=== PATIENT | female | born 1970 | race Caucasian/White ===

== ENCOUNTER 2022-05-18 11:05 | Outpatient (REF) | payer BC, SELFPAY | END 2022-05-18 11:06 | disposition home or self-care (01) | LOC: HO.MDS 11:05 | PROVIDERS: PCP Internal Medicine; Visit Provider Psychiatry & Neurology Neurology | DX: G35 Multiple sclerosis (principal) | CPT/HCPCS: 96365; J2930 ==

== ENCOUNTER 2022-05-19 10:57 | Outpatient (REF) | payer BC, SELFPAY | END 2022-05-19 10:58 | disposition home or self-care (01) | LOC: HO.MDS 10:57 | PROVIDERS: PCP Internal Medicine; Visit Provider Psychiatry & Neurology Neurology | DX: G35 Multiple sclerosis (principal) | CPT/HCPCS: 96365; J2930 ==

== ENCOUNTER 2022-05-20 11:07 | Outpatient (REF) | payer BC, SELFPAY | END 2022-05-20 11:08 | disposition home or self-care (01) | LOC: HO.MDS 11:07 | PROVIDERS: Visit Provider Psychiatry & Neurology Neurology | DX: G35 Multiple sclerosis (principal) | CPT/HCPCS: 96365; J2930 ==

== ENCOUNTER → 2022-12-01 14:59 | Outpatient (BNVA) | payer BC, SELFPAY | PROVIDERS: PCP Internal Medicine; Visit Provider Psychiatry & Neurology Psychiatry | DX: Z13.89 Encounter for screening for other disorder (principal) ==

== ENCOUNTER 2023-04-19 13:02 | Outpatient (REF) | payer BC, SELFPAY | END 2023-04-19 13:03 | disposition home or self-care (01) | LOC: HO.MDS 13:02 | PROVIDERS: Visit Provider Psychiatry & Neurology Neurology | DX: G35 Multiple sclerosis (principal) | CPT/HCPCS: 96365; J2930 ==

== ENCOUNTER 2023-04-20 12:50 | Outpatient (REF) | payer BC, SELFPAY | END 2023-04-20 12:51 | disposition home or self-care (01) | LOC: HO.MDS 12:50 | PROVIDERS: Visit Provider Psychiatry & Neurology Neurology | DX: G35 Multiple sclerosis (principal) | CPT/HCPCS: 96365; J2930 ==

== ENCOUNTER 2023-04-21 13:10 | Outpatient (REF) | payer BC, SELFPAY | END 2023-04-21 13:11 | disposition home or self-care (01) | LOC: HO.MDS 13:10 | PROVIDERS: Visit Provider Psychiatry & Neurology Neurology | DX: G35 Multiple sclerosis (principal) | CPT/HCPCS: 96365; J2930 ==

== ENCOUNTER 2023-08-11 12:11 | Outpatient (AMB) | payer BC, SELFPAY ==
--- NOTE | 2023-08-11 12:20 | MHC.OFFVISPS ---
Intake Intake Visit Reasons: depression HPI- Psychiatric Chief Complaint: depression HPI Narrative: Pt seen in f/u mood has been stable rare panic has not needed to take lorazepam going away with sophia grace uses florian when flying sober 4 yrs stable on low-dose sertraline multiple sclerosis has been stable no change on MRI scans or symptoms continue see Dr. 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 S HAS NOT TOLERATED MOOD STABILIZING AGENTS HAS BEEN STABLE ON SERTRALINE FOR YEARS Mental Status Exam Mental Status Exam Narrative: Mental Status Exam Narrative: Appearance: Casually dressed Behavior: Cooperative appropriate psychomotor: Within normal limits Speech: Normal volume and prosody Thought proccess logical and goal-directed Thought content: Future oriented no self-harming thoughts Mood: Euthymic Affect: Appropriate to mood full affect MILDLY EXPANSIVE SI:denies HI:denies VH/AH:none Delusions: None Insight/judgment: Good insight and judgment Memory/cog: Intact Assessment and Plan Assessment & Plan (1) Mood disorder: Status: Acute Code(s): F39 - Unspecified mood [affective] disorder (2) Panic disorder: Status: Acute Code(s): F41.0 - Panic disorder [episodic paroxysmal anxiety] Plan cont sertraline lorazepam prn Medications: Refilled lorazepam 0.5 mg PO BID PRN 30 tabs 1RF anxiety Counseling and coordination of Care Details: I spent [] minutes reviewing the record, seeing the patient and documenting in the medical record. Counseling provided to the patient/caregiver as outlined below. Addressed patient/caregiver concerns regarding current medication regime including effective adherence. Addressed patient/caregiver concerns regarding diagnosis and prognosis including accuracy of diagnosis, prognosis over time, impact of diagnosis. Addressed patient/caregiver concerns regarding impact of recent stressors. 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 PATIENT VERY ACTIVE IN RECOVERY. POSITIVE FAMILY HISTORY OF ANXIETY DISORDERS AND ADDICTION Substance History: PAST HISTORY OF ALCOHOL AND COCAINE USE GENERALLY CHARACTERIZED BY BINGEING Coding Level of Care Code Est Pt Level 4 (42685) Diagnoses Mood disorder F39 Panic disorder F41.0
== END 2023-08-11 12:44 | disposition home or self-care (01) ==
LOC: HO.HOP 12:11
PROVIDERS: PCP Internal Medicine; Visit Provider Psychiatry & Neurology Psychiatry
DX: F39 Unspecified mood [affective] disorder (principal); F41.0 Panic disorder [episodic paroxysmal anxiety]
CPT/HCPCS: 99214

== ENCOUNTER → 2023-08-11 12:11 | Outpatient (BNVA) | payer BC, SELFPAY | PROVIDERS: PCP Internal Medicine; Visit Provider Psychiatry & Neurology Psychiatry ==

== ENCOUNTER 2024-01-16 10:59 | Outpatient (AMB) | payer BC, SELFPAY ==
--- NOTE | 2024-01-16 11:25 | MHC.OFFVISPS ---
Intake Intake Visit Reasons: Depression HPI- Psychiatric Chief Complaint: Depression HPI Narrative: The pt reports no medical changes still sober has 16 yo at home he has anxiety problems has rare flares ms usually in may still takes protandem rare solumedrol sertraline generally takes 50 mg generally occ averages 75 occ pre panic attack feeling does do belly breathing can ride panic attack thru in traffic or plane Past Psychiatric History: HISTORY OF COCAINE AND ALCOHOL ABUSE SOBER TIMES YEARS. 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 S HAS NOT TOLERATED MOOD STABILIZING AGENTS HAS BEEN STABLE ON SERTRALINE FOR YEARS Mental Status Exam Mental Status Exam Narrative: Mental Status Exam Narrative: Appearance: Casually dressed Behavior: Cooperative appropriate psychomotor: Within normal limits Speech: Normal volume and prosody Thought proccess logical and goal-directed Thought content: Future oriented no self-harming thoughts Mood: Euthymic Affect: Appropriate to mood full affect SI:denies HI:denies VH/AH:none Delusions: None Insight/judgment: Good insight and judgment Memory/cog: Intact Assessment and Plan Assessment & Plan (1) Panic disorder: Status: Acute Code(s): F41.0 - Panic disorder [episodic paroxysmal anxiety] Assessment and Plan: generally stable no new med problrems sober x 5 yrs at this point active in AA does commitment to pre release Plan cont tx plan pt stable has varied her dose 50-75 which has worked x yrs Medications: Refilled sertraline 50 - 100 mg (0.5 - 1 x 100 mg) PO DAILY 90 tabs 1RF Counseling and coordination of Care Pt. Self Management counselin Step program Medication management counseling: Effectiveness Diagnosis and Prognosis Counseling: Adequacy of current interventions Details: I spent [30] minutes reviewing the record, seeing the patient and documenting in the medical record. Counseling provided to the patient/caregiver as outlined below. Addressed patient/caregiver concerns regarding current medication regime including effective adherence. Addressed patient/caregiver concerns regarding diagnosis and prognosis including accuracy of diagnosis, prognosis over time, impact of diagnosis. Addressed patient/caregiver concerns regarding impact of recent stressors. 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 PATIENT VERY ACTIVE IN RECOVERY. POSITIVE FAMILY HISTORY OF ANXIETY DISORDERS AND ADDICTION Substance History: PAST HISTORY OF ALCOHOL AND COCAINE USE GENERALLY CHARACTERIZED BY BINGEING Coding Level of Care Code Est Pt Level 4 (39051) Diagnoses Panic disorder F41.0
== END 2024-01-16 11:44 | disposition home or self-care (01) ==
LOC: HO.HOP 10:59
PROVIDERS: PCP Internal Medicine; Visit Provider Psychiatry & Neurology Psychiatry
DX: F41.0 Panic disorder [episodic paroxysmal anxiety] (principal)
CPT/HCPCS: 99214

== ENCOUNTER → 2024-01-16 10:59 | Outpatient (BNVA) | payer BC, SELFPAY | PROVIDERS: PCP Internal Medicine; Visit Provider Psychiatry & Neurology Psychiatry ==

== ENCOUNTER 2024-07-24 11:08 | Outpatient (AMB) | payer BC, SELFPAY ==
--- NOTE | 2024-07-24 11:51 | MHC.OFFVISPS ---
Intake Intake Visit Reasons: depression HPI- Psychiatric Chief Complaint: depression HPI Narrative: There is a ? 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 The pt has had inc anxiety panic and has had inc agoraphobia. History at times what appears to be a atypical cycling mood disorder but this has been complicated diagnostically in the past by MS treatment with steroids intermittently, past history of alcohol and cocaine use. Patient did recently other a relapsed with MS symptoms and was treated with intravenous steroids. Has not tolerated other treatments for MS. Past Psychiatric History: HISTORY OF COCAINE AND ALCOHOL ABUSE SOBER TIMES YEARS. 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 S HAS NOT TOLERATED MOOD STABILIZING AGENTS HAS BEEN STABLE ON SERTRALINE FOR YEARS T Mental Status Exam Mental Status Exam Narrative: Mental Status Exam Narrative: Appearance: Casually dressed Behavior: Cooperative appropriate mildly expansive? psychomotor: Within normal limits Speech: Normal volume and prosody Thought proccess logical and goal-directed Thought content: Future oriented no self-harming thoughts focused on recent inc in anxiety agoraphobic sx and panic Mood: ok with some anxiety Affect: Appropriate to mood full affect SI:denies HI:denies VH/AH:none Delusions: None Insight/judgment: Good insight and judgment Memory/cog: Intact Assessment and Plan Assessment & Plan (1) Panic disorder with agoraphobia: Status: Acute Code(s): F40.01 - Agoraphobia with panic disorder (2) Mood disorder: Status: Acute Code(s): F39 - Unspecified mood [affective] disorder (3) Multiple sclerosis: Status: Acute Code(s): G35 - Multiple sclerosis Plan cont 100 mg sertraline florian 0.5 prn panic attack had relapse panic agoraphobia december recent MS attck after viral syndrome was on steroids x 5 days recommends protandim for MS has worked for yrs. Patient has had periods of disinhibition unclear if related to MS ADD or cycling mood disorder but generally has done best on a combination of sertraline with rare use of lorazepam. Monitor patient for any increase anxiety agitation or mood instability on higher dose sertraline Medications: Changed From sertraline 75 mg (1.5 x 50 mg) PO DAILY 45 tabs 2RF To sertraline 100 mg PO DAILY 30 tabs 3RF Refilled lorazepam 0.5 mg PO BID PRN 30 tabs 1RF anxiety Counseling and coordination of Care Pt. Self Management counselin Step program and Breathing Medication management counseling: Effectiveness, Side effects and Dosing range Diagnosis and Prognosis Counseling: Accuracy of diagnosis, Impact of diagnosis on life functions and Adequacy of current interventions Details: I spent [25] minutes reviewing the record, seeing the patient and documenting in the medical record. Counseling provided to the patient/caregiver as outlined below. Addressed patient/caregiver concerns regarding current medication regime including effective adherence. Addressed patient/caregiver concerns regarding diagnosis and prognosis including accuracy of diagnosis, prognosis over time, impact of diagnosis. Addressed patient/caregiver concerns regarding impact of recent stressors. 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 PATIENT VERY ACTIVE IN RECOVERY. POSITIVE FAMILY HISTORY OF ANXIETY DISORDERS AND ADDICTION Substance History: PAST HISTORY OF ALCOHOL AND COCAINE USE GENERALLY CHARACTERIZED BY BINGEING Coding Level of Care Code Est Pt Level 4 (41076) Diagnoses Panic disorder with agoraphobia F40.01 Mood disorder F39 Multiple sclerosis G35
== END 2024-07-24 11:44 | disposition home or self-care (01) ==
LOC: HO.HOP 11:08
PROVIDERS: PCP Internal Medicine; Visit Provider Psychiatry & Neurology Psychiatry
DX: F40.01 Agoraphobia with panic disorder (principal); F39 Unspecified mood [affective] disorder; G35 Multiple sclerosis
CPT/HCPCS: 99214

== ENCOUNTER → 2024-07-24 11:08 | Outpatient (BNVA) | payer BC, SELFPAY | PROVIDERS: PCP Internal Medicine; Visit Provider Psychiatry & Neurology Psychiatry ==

== ENCOUNTER 2024-09-18 11:00 | Outpatient (AMB) | payer BC, SELFPAY ==
--- NOTE | 2024-09-18 11:38 | A.OFFPSYCH_ITS ---
Intake Intake Visit Reasons: depression HPI- Psychiatric Chief Complaint: depression HPI Narrative: Pt seen in f/u asking about add tx for concentration distractibility. Some inc anxiety distractibility ? related to ms attack few months ago. has been on sertraline 75 but has brakthru anxiety when driving and occ panic rare use of lorazepam Past Psychiatric History: HISTORY OF COCAINE AND ALCOHOL ABUSE SOBER TIMES YEARS. 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 S HAS NOT TOLERATED MOOD STABILIZING AGENTS HAS BEEN STABLE ON SERTRALINE FOR YE ARS T Mental Status Exam Mental Status Exam Narrative: Mental Status Exam Narrative: Appearance: Casually dressed Behavior: Cooperative appropriate mildly expansive? psychomotor: Within normal limits Speech: Normal volume and prosody Thought proccess logical and goal-directed Thought content: no self-harming thoughts focused on recent inc in anxiety agoraphobic sx and panic focused on dx and tx issues Mood: ok with some anxiety Affect: Appropriate to mood full affect SI:denies HI:denies VH/AH:none Delusions: None Insight/judgment: Good insight and judgment Memory/cog: Intact Assessment and Plan Assessment & Plan (1) Panic disorder with agoraphobia: Status: Acute Code(s): F40.01 - Agoraphobia with panic disorder (2) Multiple sclerosis: Status: Acute Code(s): G35 - Multiple sclerosis (3) Attention and concentration deficit: Status: Acute Code(s): R41.840 - Attention and concentration deficit Plan Pt has had inc anxiety phobic anxiety sx at times when driving ,discussed inc distactibility and hx of adhd sx. Compicated by recent ms attack with steroids Has been sober x yrs would avoid stimulants Medications: New guanfacine ER 1 at bedtime x 5 days then 2 bedtime 1 mg PO QPM 60 tabs 1RF Counseling and coordination of Care Pt. Self Management counseling: Breathing and Cognitive restructuring Medication management counseling: Effectiveness and Side effects Diagnosis and Prognosis Counseling: Impact of diagnosis on life functions and Adequacy of current interventions Details: I spent [30] minutes reviewing the record, seeing the patient and documenting in the medical record. Counseling provided to the patient/caregiver as outlined below. Addressed patient/caregiver concerns regarding current medication regime including effective adherence. Addressed patient/caregiver concerns regarding diagnosis and prognosis including accuracy of diagnosis, prognosis over time, impact of diagnosis. Addressed patient/caregiver concerns regarding impact of recent stressors. 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 PATIENT VERY ACTIVE IN RECOVERY. POSITIVE FAMILY HISTORY OF ANXIETY DISORDERS AND ADDICTION Substance History: PAST HISTORY OF ALCOHOL AND COCAINE USE GENERALLY CHARACTERIZED BY BINGEING Coding Level of Care Code Est Pt Level 4 (01783) Diagnoses Panic disorder with agoraphobia F40.01 Multiple sclerosis G35 Attention and concentration deficit R41.840
--- OUTSIDE RECORDS SUMMARY | 2024-09-19 01:21 | XMS_ITS ---
Author Name [facility] Organization Unknown History of Medication Use Medication Directions Dispensed Refills Start Date End Date [facility] orphenadrine (NORFLEX) injection 30 mg 30 mg, Intravenous, Once as needed, muscle spasms, for musculoskeletal pain, to achieve pain scale less than or equal to 4, Starting on Mon12/29/23 at 0946, For 1 dose, PACU/Phase 1 12/31/2023 complet ed dexamethasone (DECADRON) injection 4 mg 4 mg, Intravenous, Once as needed, other, nausea, vomiting, Starting on Mon12/29/23 at 0946, For 1 dose, PACU/Phase 1Administer 2nd unless given in the OR if zofran is ineffective and patient continues to be symptomatic. 12/31/2023 active sertraline (ZOLOFT) 50 MG tablet Take 1 tablet (50 mg total) by mouth every night at bedtime. 12/31/2023 active acetaminophen (TYLENOL) tablet 650 mg 650 mg, Oral, Every 6 hours PRN, mild pain (1-3), Starting on Mon12/29/23 at 0946, PACU/Phase 1 12/31/2023 active dimenhyDRINATE (DRAMAMINE) injection 25 mg 25 mg, Intravenous, Once as needed, nausea, Nausea, vomiting, Starting on Mon12/29/23 at 0946, For 1 dose, PACU/Phase 1Administer 3rd unless given in the OR if zofran and decadron are ineffective and patient continues to be symptomatic.??INTRAM USCULAR: No dilution required INTRAVENOUS: Must dilute 12/31/2023 completed HYDROmorphone (DILAUDID) injection 0.2 mg 0.2 mg, Intravenous, Every 15 min PRN, moderate pain (4-6), Starting on Mon12/29/23 at 0946, PACU/Phase 1FOR PACU USE ONLY.??If unable to take by mouth.??Do not exceed 2 mg.?? 12/31/2023 active oxyCODONE (ROXICODONE) 5 MG immediate release tablet 5 mg 5 mg, Oral, Every 4 hours PRN, moderate pain (4-6), achieve pain scale less than or equal to 4, Starting on Mon12/29/23 at 0946, For 2 doses, PACU/Phase 1Give when patient is able to take PO. 12/31/2023 active meperidine (DEMEROL) 25 MG/ML injection 12.5 mg 12.5 mg, Intravenous, Every 30 min PRN, shivering not due to postoperative hypothermia., Starting on Mon12/29/23 at 0946, For 2 doses, PACU/Phase 1May repeat x 1 in 30 minutes. 12/31/2023 active HYDROmorphone (DILAUDID) injection 0.5 mg 0.5 mg, Intravenous, Every 15 min PRN, severe pain (7-10), Starting on Mon12/29/23 at 0946, PACU/Phase 1FOR PACU USE ONLY.??If unable to take by mouth.??Do not exceed 2 mg.?Administer IV push over 2-3 minutes. 12/31/2023 active ondansetron (ZOFRAN) injection 4 mg 4 mg, Intravenous, Once as needed, nausea, vomiting, Starting on Mon12/29/23 at 0946, For 1 dose, PACU/Phase 1Administer 1st unless given in OR, then administer dexamethasone 12/31/2023 active lactated ringers infusion 50 mL/hr, Intravenous, Continuous, Starting on Mon12/29/23 at 0600, Pre-op 12/31/2023 active Problems Problem Status Onset Date Problem Type Date of Resoluti on Source Excess skin of upper extremity active EncounterDiagnosisAct CTT HSFRAN
== END 2024-09-18 12:06 | disposition home or self-care (01) ==
LOC: HO.HOP 11:00
PROVIDERS: PCP Internal Medicine; Visit Provider Psychiatry & Neurology Psychiatry
DX: F40.01 Agoraphobia with panic disorder (principal); G35 Multiple sclerosis; R41.840 Attention and concentration deficit
CPT/HCPCS: 99214

== ENCOUNTER 2024-10-01 16:05 | Outpatient (AMB) | payer BC, SELFPAY ==
--- NOTE | 2024-10-01 13:44 | MHC.OFFVISPS ---
Intake Intake Visit Reasons: depression HPI- Psychiatric Chief Complaint: depression HPI Narrative: Pt felt light headed on guanfacine did not tolerate. Patient has had an increase anxiety panic and and anticipatory anxiety particularly when driving. She has been stable on sertraline for many years this changed after MS attack a number of months ago. No relapse for number of years patient remained sober. Son has a history of ADHD and anxiety. Patient's temperament seems to be outgoing personality questions regarding cycling in the past Past Psychiatric History: HISTORY OF COCAINE AND ALCOHOL ABUSE SOBER TIMES YEARS. 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 S HAS NOT TOLERATED MOOD STABILIZING AGENTS HAS BEEN STABLE ON SERTRALINE FOR YEARS T Telehealth Telehealth Location of provider rendering services: practice address Location of patient: address on file Patient Identification confirmed using: Name, : Yes Telehealth method: video Patient verbally consented to treatment: Yes Patient verbally consented to billing insurance company: Yes Minutes spent on Phone/Video with Pt.: 17 Assessment and Plan Assessment & Plan (1) Panic disorder with agoraphobia: Status: Acute Code(s): F40.01 - Agoraphobia with panic disorder (2) Multiple sclerosis: Status: Acute Code(s): G35 - Multiple sclerosis Plan Patient did not tolerate guanfacine secondary to hypotension does not seem a good candidate for stimulants. Strattera could be an option targeting titration. Patient generally functions quite well at work has at more panic symptoms over the past number of months and we did discuss options regarding sertraline lorazepam 0.5 b.i.d. p.r.n.. Could consider a switch from sertraline consider low-dose doxepin or nortriptyline. Patient is dealing with fact that she had an MS attack for the 1st time an extended period time and was treated prednisone there had been some changes since Counseling and coordination of Care Pt. Self Management counseling: Cognitive restructuring and Exposure Medication management counseling: Effectiveness and Side effects Diagnosis and Prognosis Counseling: Impact of diagnosis on life functions and Adequacy of current interventions Details: I spent [17] minutes reviewing the record, seeing the patient and documenting in the medical record. Counseling provided to the patient/caregiver as outlined below. Addressed patient/caregiver concerns regarding current medication regime including effective adherence. Addressed patient/caregiver concerns regarding diagnosis and prognosis including accuracy of diagnosis, prognosis over time, impact of diagnosis. Addressed patient/caregiver concerns regarding impact of recent stressors. 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 PATIENT VERY ACTIVE IN RECOVERY. POSITIVE FAMILY HISTORY OF ANXIETY DISORDERS AND ADDICTION Substance History: PAST HISTORY OF ALCOHOL AND COCAINE USE GENERALLY CHARACTERIZED BY BINGEING Coding Level of Care Code Tele Est Pt Level 3 (14881) Diagnoses Panic disorder with agoraphobia F40.01 Multiple sclerosis G35
== END 2024-10-01 16:05 | disposition home or self-care (01) ==
LOC: HO.HOP 16:05
PROVIDERS: PCP Internal Medicine; Visit Provider Psychiatry & Neurology Psychiatry
DX: F40.01 Agoraphobia with panic disorder (principal); G35 Multiple sclerosis
CPT/HCPCS: 99213

== ENCOUNTER → 2024-10-01 16:05 | Outpatient (BNVA) | payer BC, SELFPAY | PROVIDERS: PCP Internal Medicine; Visit Provider Psychiatry & Neurology Psychiatry ==

== ENCOUNTER 2025-01-17 12:29 | Outpatient (AMB) | payer BC, SELFPAY ==
--- NOTE | 2025-01-17 12:42 | A.OFFPSYCH_ITS ---
Intake Intake Visit Reasons: depression Medication List - Last Reconciled 01/17/25 by Adalid Watts MD albuterol sulfate 90 mcg/actuation 2 puffs inhalation Q6H estradiol patches transdermal lorazepam 0.5 mg PO BID PRN progesterone micronized 100 mg PO DAILY sertraline 75 mg (1.5 x 50 mg) PO DAILY sertraline 100 mg PO DAILY HPI- Psychiatric Chief Complaint: depression HPI Narrative: Pt seen in f/u does still get panic attacks about 4 x week does have skills to try and block since perimenopause has been worse. No acute attcks MS since jun . Patient does not seem to be stabilizing on sertraline currently at 75 mg. Usually had only used minimal amounts of lorazepam \has generally been able to use coping skills breathing meditation. Denies any manic symptoms euphoria giddiness Past Psychiatric History: HISTORY OF COCAINE AND ALCOHOL ABUSE SOBER TIMES YEARS. 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 S HAS NOT TOLERATED MOOD STABILIZING AGENTS HAS BEEN STABLE ON SERTRALINE FOR YEARS T Mental Status Exam Mental Status Exam Narrative: Mental Status Exam Narrative: Appearance: Casually dressed Behavior: Cooperative appropriate mildly expansive psychomotor: Within normal limits Speech: Normal volume mildly pressured Thought proccess logical and goal-directed Thought content: focused on recent inc in anxiety agoraphobic sx and panic focused on dx and tx issues Mood: ok with some anxiety Affect: Appropriate to mood full affect SI:denies HI:denies VH/AH:none Delusions: None Insight/judgment: Good insight and judgment Memory/cog: Intact Assessment and Plan Assessment & Plan (1) Panic disorder: Status: Acute Code(s): F41.0 - Panic disorder [episodic paroxysmal anxiety] (2) Multiple sclerosis: Status: Acute Code(s): G35 - Multiple sclerosis (3) Attention and concentration deficit: Status: Acute Code(s): R41.840 - Attention and concentration deficit Plan Patient seen psychiatric follow-up. Patient has a history of MS and perimenopause has been started on low-dose estradiol patch with progesterone. Unfortunately the patient continues to have breakthrough panic attacks pr oximally for a week she does have strategies to cope with this but this is markedly increase from her prior history of panic disorder. We discussed the use of mirtazapine 7.5 mg at bedtime reviewed potential side effects including sedation and weight gain. Would start at a half tablet at bedtime increase as needed and tolerated. Patient does have a history of a mass she does have some degree of fatigue if mirtazapine contributes to daytime fatigue would discontinue Medications: New mirtazapine 7.5 mg PO BEDTIME 30 tabs 1RF Counseling and coordination of Care Details-Self Mgmt counseling: Discussed issues related to medication relationship to panic disorder ways to block panic attacks in the nature of panic attacks some of which can be condition and often coming out of no where Patient does have a history of MS Medication management counseling: Effectiveness and Side effects Diagnosis and Prognosis Counseling: Adequacy of current interventions Details: I spent [39] minutes reviewing the record, seeing the patient and documenting in the medical record. Counseling provided to the patient/caregiver as outlined below. Addressed patient/caregiver concerns regarding current medication regime including effective adherence. Addressed patient/caregiver concerns regarding diagnosis and prognosis including accuracy of diagnosis, prognosis over time, impact of diagnosis. Addressed patient/caregiver concerns regarding impact of recent stressors. 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 PATIENT VERY ACTIVE IN RECOVERY. POSITIVE FAMILY HISTORY OF ANXIETY DISORDERS AND ADDICTION Substance History: PAST HISTORY OF ALCOHOL AND COCAINE USE GENERALLY CHARACTERIZED BY BINGEING Coding Level of Care Code Est Pt Level 3 (89526) Therapy 30m w/E&M (42328) Diagnoses Panic disorder F41.0 Multiple sclerosis G35 Attention and concentration deficit R41.840
--- OUTSIDE RECORDS SUMMARY | 2025-01-17 13:09 | XMS_ITS | Encounter Summary ---
Author Organization [facility] Address [address] [place] [address] 12031 Care Team Providers Care Tele Rn Name Role Phone Unavailable Primary Care Provider Unavailabl e Encounter Details Date Type Department Care Team (Latest Contact Info) Description 10/21/2020 Lab Requisition [facility] COVID Drive Through [address] [place] [address] [address] [place] [address] Delmer May PA-C [address] [place] [address] [phone] Encounter for laboratory testing for COVID-19 virus Social History Tobacco Use Types Packs/Day Years Used Date Smoking Tobacco: Never Assessed Sex and Gender Information Value Date Recorded Sex Assigned at Not on file Gender Identity Not on file Sexual Orientation Not on file documented as of this encounter Plan of Treatment Not on file documented as of this encounter Visit Diagnoses Diagnosis Encounter for laboratory testing for COVID-19 virus documented in this encounter
--- OUTSIDE RECORDS SUMMARY | 2025-01-17 13:09 | XMS_ITS | Encounter Summary ---
Author Organization [facility] Address [address] [place] [address] Care Team Providers Care Professional Advisor Name Role Phone Unavailable Primary Care Provider Unavailabl e Encounter Details Date Type Department Care Team (Latest Contact Info) Description 10/21/2020 Lab Requisition [facility] COVID Drive Through [address] [place] [address] [address] [place] [address] Delmer May PA-C [address] [place] [address] [phone] Encounter for laboratory testing for COVID-19 virus Social History Tobacco Use Types Packs/Day Years Used Date Smoking Tobacco: Never Assessed Sex and Gender Information Value Date Recorded Sex Assigned at Not on file Gender Identity Not on file Sexual Orientation Not on file documented as of this encounter Plan of Treatment Not on file documented as of this encounter Procedures Procedure Name Priority Date/Time Associated Diagnosis Comments COVID-19 (SARS-COV-2) - [facility] LAB Routine 10/21/2020 12:43 PM EST Encounter for laboratory testing for COVID-19 virus [ICD-10-CM] documented in this encounter Results * COVID-19 (SARS-COV-2) ([facility]) (10/21/2020 12:43 PM EST) COVID-19 RT-PCR NOT-DETEC KATHI Not-Detec kathi 10/22/2020 6:10 PM EST [facility] LAB - [place] Comment:Interpretation: The viral RNA was not detected, making the COVID-19 diagnosis less likely. Clinical correlation is highly recommended.Final report signed by Bonny Pitts, Ph.D., Laboratory DirectorTests performed at [facility] Nasopharyngeal swab / Unknown 10/21/2020 12:43 PM EST 10/21/2020 12:44 PM EST Narrative CAITLYNKolton KARLY HERNANDEZJOSE R - 10/22/2020 6:10 PM EST Performed by [facility] [address] [place] [address], CLIA# [id number] and [place] License# [id number] Delmer May PA-C MICROBIOLOGY - NERAL ORDERABLES LEXIE HUGGINS documented in this encounter Visit Diagnoses Diagnosis Encounter for laboratory testing for COVID-19 virus documented in this encounter
--- OUTSIDE RECORDS SUMMARY | 2025-01-17 13:09 | XMS_ITS | Clinical Summary ---
Author Organization [facility] Address [address] [place] [address] Care Team Providers Care Caddymaster Name Role Phone Crystal Tavarez MD Primary Care Provide r Surgical History Surgery Date Site/Laterality Comments COLONOSCOPY PROCEDURE:COLONOSCOPY BACK SURGERY PROCEDURE:BACK SURGERY;COMMENT:cervial disc replacement DILATION AND CURETTAGE OF UTERUS PROCEDURE:DILATION AND CURETTAGE OF UTERUS TUBAL LIGATION PROCEDURE:TUBAL LIGATION OTHER SURGICAL HISTORY 12/29/2023 Bilateral PROCEDURE:BRACHIOPLASTY;COMME NT:Procedure: BILATERAL BRACHIOPLASTY; Surgeon: Christian Briscoe MD; Location: [facility] MAIN OPERATING ROOM; Service: Plastics; Laterality: Bilateral; LIPOSUCTION 12/29/2023 Bilateral PROCEDURE:LIPOSUCTION;COMMENT :Procedure: WITH PRE LIPOSUCTION ARMS; Surgeon: Christian Briscoe MD; Location: [facility] MAIN OPERATING ROOM; Service: Plastics; Laterality: Bilateral; Medical History Medical History Date Comments MS (multiple sclerosis) ([facility] /HCC V24, CMS/HCC V28) DX:MS (multiple sclerosis) ([facility]);COMMENT:Relapsing/ remitting per pt Visual impairment DX:Visual impa irment;COMMENT:Will wear glasses not contacts dos Social History Tobacco Use Types Packs/Day Years Used Date Smoking Tobacco: Never Smokeless Tobacco: Never Alcohol Use Standard Drinks/Week Comments Not Currently 0 (1 standard drink = 0.6 oz pur e alcohol) Comments Unknown Sex and Gender Information Value Date Recorded Sex Assigned at Not on file Legal Sex Female 2:05 PM EST Gender Identity Not on file Sexual Orientation Not on file Obstetrics History Plan of Treatment Health Maintenance Due Date Last Done Comments Breast Cancer Screening 1971 DTaP,Tdap,and Td Vaccines (1 - Tdap) 1990 Hepatitis B Vaccines (1 of 3 - 19+ 3-dose series) 1990 Cervical Cancer Screening: P ap Smear 1992 Pneumococcal Vaccine: 50+ Ye ars (1 of 1 - PCV) 2021 Zoster Vaccines (1 of 2) 2021 Colorectal Cancer Screening: Colonoscopy 06/03/2024 Depression Screening 06/03/2024 HIV Screening 06/03/2024 Hepatitis C Screening 06/03/2024 Social Influencers of Health Screening 06/03/2024 COVID-19 Vaccine (1 - 2023-2 5 season) 2024 Influenza Vaccine (Season Ended) 2025 HIB Vaccines Aged Out No longer eligi ble based on patient's age to complete this topic HPV Vaccines Aged Out No longer eligi ble based on patient's age to complete this topic Hepatitis A Vaccines Aged Out No long er eligible based on patient's age to complete this topic IPV Vaccines Aged Out No longer eligi ble based on patient's age to complete this topic MMR Vaccines Aged Out No longer eligi ble based on patient's age to complete this topic Meningococcal ACWY Vaccine Aged Out N o longer eligible based on patient's age to complete this topic Meningococcal B Vaccine Aged Out No l onger eligible based on patient's age to complete this topic Pneumococcal Vaccine: Pediat rics (0 to 5 Years) and At-Risk Patients (6 to 64 Years) Aged Out No longer eligible b ased on patient's age to complete this topic RSV Immunization Patients Un fallon 20 months Aged Out No longer eligible b ased on patient's age to complete this topic Varicella Vaccines Aged Out No longer eligible based on patient's age to complete this topic Care Teams Caddymaster Relationship Specialty Start Date End Date Crystal Tavarez MD [address] [place], [place] [address]les[place] PCP - General 12/29/23
--- OUTSIDE RECORDS SUMMARY | 2025-01-17 13:09 | XMS_ITS | Clinical Summary ---
Author Organization [facility] Address [address] [place] [address] Care Team Providers Care Rn Charge Name Role Phone Crystal Tavarez MD Primary Care Provide r Allergies Active Allergy Reactions Criticality Noted Date Comments Azithromycin Rash Low 12/25/2023 Other 12/25/2023 EKG gel/ has caused Burn like skin issues in past Penicillins Rash Low 12/25/2023 Sulfa Antibiotics Rash Low 12/25/2023 Medications Medication Sig Dispensed Refills Start Date End Date Status sertraline (ZOLOFT) 50 MG tablet Take 1 tablet (50 mg total) by mouth every night at bedtime. 0 Active Social History Tobacco Use Types Packs/Day Years Used Date Smoking Tobacco: Never Smokeless Tobacco: Never Alcohol Use Standard Drinks/Week Comments Not Currently 0 (1 standard drink = 0.6 oz pur e alcohol) Sex and Gender Information Value Date Recorded Sex Assigned at Female 12/01/2023 5:14 PM EST Gender Identity Not on file Sexual Orientation Not on file Job Start Date Occupation Industry Not on file Not on file Not on file Last Filed Vital Signs Vital Sign [place] Time Taken Comments Blood Pressure 126/62 12/29/2023 11:49 AM EDT Pulse 79 12/29/2023 11:49 AM EDT Temperature 36.8 ??C (98.3 ??F) 12/29/2023 11:39 AM E DT Respiratory Rate 16 12/29/2023 11:49 AM EDT Oxygen Saturation 96% 12/29/2023 11:49 AM EDT Inhaled Oxygen Concentration - - Weight 72.6 kg (160 lb) 12/25/2023 12:53 PM EDT Height 165.1 cm (5' 5 ) 12/25/2023 12:53 PM EDT Body Mass Index 26.63 12/25/2023 12:53 PM EDT Plan of Treatment Health Maintenance Due Date Last Done Comments Hepatitis B Vaccines (1 of 3 - 3-dose series) 1971 Hepatitis C Screening 1971 COVID-19 Vaccine (#1) 1971 Depression Screening 1983 BMI Counseling 1989 Preventative Health Evaluation 1989 DTap / Tdap / Td (1 - Tdap) 1990 Cervical Cancer Screening (P ap Smear) 1992 Colon Cancer Screening (Colonoscopy) 2016 Breast Cancer Screening (Mammogram) 2021 Shingrix-Zoster Vaccine (1 of 2) 2021 Influenza Vaccine (#1) 2024 Pneumococcal Vaccine Aged Out No long er eligible based on patient's age to complete this topic RSV Ped < 20 months Aged Out No longe r eligible based on patient's age to complete this topic Care Teams Rn Charge Relationship Specialty Start Date End Date Crystal Tavarez MD [address] [facility] [place] [address] PCP - General Internal Medicine 12/29/23
--- OUTSIDE RECORDS SUMMARY | 2025-01-17 13:09 | XMS_ITS | Clinical Summary ---
Author Organization [facility] Address [address] [place] [address] Care Team Providers Care Mail Courier Name Role Phone Unavailable Primary Care Provider Unavailabl e Social History Tobacco Use Types Packs/Day Years Used Date Smoking Tobacco: Never Assessed Sex and Gender Information Value Date Recorded Sex Assigned at Not on file Gender Identity Not on file Sexual Orientation Not on file Plan of Treatment Health Maintenance Due Date Last Done Comments Hepatitis C Virus Screening 1971 HIV Screening 1984 DTaP/Tdap/Td Vaccines (1 - Tdap) 1990 Hepatitis B Vaccines (1 of 3 - 19+ 3-dose series) 1990 Pneumococcal Vaccines 50+ (1 of 1 - PCV) 2021 Zoster (Shingles) Vaccine (1 of 2) 2021 COVID-19 Vaccine ( - 2023-2 5 season) 2024 Pneumococcal Vaccine: Pediat sulaiman (0-5 Years) and At-Risk Patients (6 to 49 Years) Aged Out No longer eligible b ased on patient's age to complete this topic
== END 2025-01-17 13:01 | disposition home or self-care (01) ==
LOC: HO.HOP 12:29
PROVIDERS: PCP Internal Medicine; Visit Provider Psychiatry & Neurology Psychiatry
DX: F41.0 Panic disorder [episodic paroxysmal anxiety] (principal); G35 Multiple sclerosis; R41.840 Attention and concentration deficit
CPT/HCPCS: 90833; 99213

== ENCOUNTER → 2025-01-17 12:29 | Outpatient (BNVA) | payer BC, SELFPAY | PROVIDERS: PCP Internal Medicine; Visit Provider Psychiatry & Neurology Psychiatry ==

== ENCOUNTER 2025-02-06 12:33 | Outpatient (AMB) | payer BC, SELFPAY ==
--- NOTE | 2025-02-06 12:50 | A.OFFPSYCH_ITS ---
Intake Intake Visit Reasons: depression Allergies Unable to Assess Allergy (Verified 01/19/25 00:45) Medication List - Last Reconciled 02/06/25 by Adalid Watts MD albuterol sulfate 90 mcg/actuation 2 puffs inhalation Q6H escitalopram oxalate 5 - 10 mg (0.5 - 1 x 10 mg) PO DAILY 30 days estradiol patches transdermal lorazepam 0.5 mg PO BID PRN lorazepam 0.5 mg PO BID PRN progesterone micronized 100 mg PO DAILY sertraline 75 mg (1.5 x 50 mg) PO DAILY sertraline 50 mg (1/2 x 100 mg) PO DAILY HPI- Psychiatric Chief Complaint: depression HPI Narrative: The pt cont to have significant chamge in anxiety ,battling driving fears and some in use of lorazepam over time but unusual. Sertraline 50-75 not effective. Past Psychiatric History: HISTORY OF COCAINE AND ALCOHOL ABUSE SOBER TIMES YEARS. 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 S HAS NOT TOLERATED MOOD STABILIZING AGENTS HAS BEEN STABLE ON SERTRALINE FOR YEARS T Mental Status Exam Mental Status Exam Narrative: Mental Status Exam Narrative: Appearance: Casually dressed Behavior: Cooperative appropriate psychomotor: Within normal limits Speech: Normal volume mildly pressured Thought proccess logical and goal-directed Thought content: focused on treatment coping strategies and improvement in symptoms Mood: ok with some anxiety Affect: Appropriate to mood full affect SI:denies HI:denies VH/AH:none Delusions: None Insight/judgment: Good insight and judgment Memory/cog: Intact Assessment and Plan Assessment & Plan (1) Panic disorder: Status: Acute Code(s): F41.0 - Panic disorder [episodic paroxysmal anxiety] Plan Risks benefits and alternatives reviewed discussed changing from sertraline gradually tapering down and starting escitalopram 5 mg. Patient at this point appears general resistant to sertraline. Not overly depressed still functioning generally well at work and home. Patient to cross taper to call if significant side effects during taper Medications: New escitalopram oxalate 5 - 10 mg (0.5 - 1 x 10 mg) PO DAILY 30 tabs 2RF 30 days Changed From sertraline 100 mg PO DAILY 30 tabs 1RF To sertraline 50 mg (1/2 x 100 mg) PO DAILY 30 tabs 1RF Discontinued mirtazapine Discontinued Reason: Patient no longer taking 7.5 mg PO BEDTIME 30 tabs 1RF Counseling and coordination of Care Details: I spent [] minutes reviewing the record, seeing the patient and documenting in the medical record. Counseling provided to the patient/caregiver as outlined below. Addressed patient/caregiver concerns regarding current medication regime including effective adherence. Addressed patient/caregiver concerns regarding diagnosis and prognosis including accuracy of diagnosis, prognosis over time, impact of diagnosis. Addressed patient/caregiver concerns regarding impact of recent stressors. 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 PATIENT VERY ACTIVE IN RECOVERY. POSITIVE FAMILY HISTORY OF ANXIETY DISORDERS AND ADDICTION Substance History: PAST HISTORY OF ALCOHOL AND COCAINE USE GENERALLY CHARACTERIZED BY BINGEING Coding Level of Care Code Est Pt Level 4 (58149) Diagnoses Panic disorder F41.0
--- OUTSIDE RECORDS SUMMARY | 2025-02-06 14:49 | XMS_ITS | Encounter Summary ---
Author Organization [facility] Address [address] [place] [address] Care Team Providers Care Watch Dial Printer Name Role Phone Unavailable Primary Care Provider Unavailabl e Encounter Details Date Type Department Care Team (Latest Contact Info) Description 10/21/2020 Lab Requisition [facility] COVID Drive Through [address] [place] [address] [address] [place] [address] Delmer May PA-C [address] [place] [address] [phone] Encounter for laboratory testing for COVID-19 virus Social History Tobacco Use Types Packs/Day Years Used Date Smoking Tobacco: Never Assessed Comments Unknown Sex and Gender Information Value Date Recorded Sex Assigned at Not on file Legal Sex Female 3:26 PM EDT Gender Identity Not on file Sexual Orientation Not on file documented as of this encounter Plan of Treatment Not on file documented as of this encounter Procedures Procedure Name Priority Date/Time Associated Diagnosis Comments COVID-19 (SARS-COV-2) - [facility] LAB Routine 10/21/2020 12:43 PM EST Encounter for laboratory testing for COVID-19 virus [ICD-10-CM] documented in this encounter Results * COVID-19 (SARS-COV-2) ([facility]4) (10/21/2020 12:43 PM EST) COVID-19 RT-PCR NOT-DETEC KATHI Not-Detec kathi 10/22/2020 6:10 PM EST [facility] LAB - [place] Comment:Interpretation: The viral RNA was not detected, making the COVID-19 diagnosis less likely. Clinical correlation is highly recommended.Final report signed by Bonny Pitts, Ph.D., Laboratory DirectorTests performed at [facility] Nasopharyngeal swab / Unknown 10/21/2020 12:43 PM EST 10/21/2020 12:44 PM EST Narrative LEXIE HUGGINS - 10/22/2020 6:10 PM EST Performed by [facility] [address] [place] [address], CLIA# [id number] and [place] License# [id number] us Delmer May PA-C MICROBIOLOGY - GENERAL OR DERABLES Final Result LEXIE HUGGINS documented in this encounter Visit Diagnoses Diagnosis Encounter for laboratory testing for COVID-19 virus documented in this encounter
--- OUTSIDE RECORDS SUMMARY | 2025-02-06 14:50 | XMS_ITS | Clinical Summary ---
Author Organization [facility] Address [address] [place] [address] Care Team Providers Care Redipper Name Role Phone Unavailable Primary Care Provider [...] (1 of 3 - 19+ 3-dose series) 03/10 Pneumococcal Vaccines 50+ (1 of 1 - PCV) 2021 Zoster (Shingles) Vaccine (1 of 2) 2021 COVID-19 Vaccine (1 - 2023- season) 2024
--- OUTSIDE RECORDS SUMMARY | 2025-02-06 14:51 | XMS_ITS | Encounter Summary ---
Author Organization [facility] Address [address] [place] [address] Care Team Providers Care Credit Collection Associate Name Role Phone Unavailable Primary Care Provider Unavailabl e Encounter Details Date Type Department Care Team (Latest Contact Info) Description 10/21/2020 Lab Requisition [facility] COVID Drive Through [address] [place] [address] [address] [place] [address] Delmer May PA-C [address] [place] [address] [phone] Encounter for laboratory testing for COVID-19 virus [...]
--- OUTSIDE RECORDS SUMMARY | 2025-02-06 14:52 | XMS_ITS | Clinical Summary ---
Author Organization [facility] Address [address] [place] [address] Care Team Providers Care Conservation Of Resources Commissioner Name Role Phone Crystal Tavarez MD Primary [...] age to complete this topic Care Teams Conservation Of Resources Commissioner Relationship Specialty Start Date End Date Crystal Tavarez MD [address] [facility] [place] [address] PCP - General Internal Medicine 12/29/23
== END 2025-02-06 12:36 | disposition home or self-care (01) ==
LOC: HO.HOP 12:33
PROVIDERS: PCP Internal Medicine; Visit Provider Psychiatry & Neurology Psychiatry
DX: F41.0 Panic disorder [episodic paroxysmal anxiety] (principal)
CPT/HCPCS: 99214

== ENCOUNTER → 2025-02-06 12:33 | Outpatient (BNVA) | payer BC, SELFPAY | PROVIDERS: PCP Internal Medicine; Visit Provider Psychiatry & Neurology Psychiatry ==

== ENCOUNTER 2025-02-14 12:30 | Outpatient (AMB) | payer BC, SELFPAY ==
--- OUTSIDE RECORDS SUMMARY | 2025-02-14 12:35 | XMS_ITS | Encounter Summary ---
Author Organization [facility] Address [address] [place] [address] Care Team Providers Care Office System Analyst Name Role Phone Unavailable Primary Care Provider Unavailabl e Encounter Details Date Type Department Care Team (Latest Contact Info) Description 10/21/2020 Lab Requisition [facility] COVID Drive Through [address] [place] [address] [address] [place] [address] Delmer May PA-C [address] [place] [address] [phone] Encounter for laboratory testing for COVID-19 virus [...] Bonny Pitts, Ph.D., Laboratory DirectorTests performed at [facility] Nasopharyngeal swab / Unknown 10/21/2020 12:43 PM EST 10/21/2020 12:44 PM EST Narrative LEXIE HUGGINS - 10/22/2020 6:10 PM EST Performed by [facility] [address] [place] [address], CLIA# [id number] and [place] License# [id number] us Delmer May PA-C MICROBIOLOGY - GENERAL OR DERABLES Final Result LEXIE HUGGINS documented in this encounter Visit Diagnoses Diagnosis Encounter for laboratory testing for COVID-19 virus documented in this encounter
--- OUTSIDE RECORDS SUMMARY | 2025-02-14 12:35 | XMS_ITS | Clinical Summary ---
Author Organization [facility] Address [address] [place] [address] Care Team Providers Care Facilities Operator Name Role Phone Crystal Tavarez MD Primary Care Provide r Surgical History Surgery Date Site/Laterality Comments COLONOSCOPY PROCEDURE:COLONOSCOPY BACK SURGERY PROCEDURE:BACK SURGERY;COMMENT:cervial disc replacement DILATION AND CURETTAGE OF UTERUS PROCEDURE:DILATION AND CURETTAGE OF UTERUS TUBAL LIGATION PROCEDURE:TUBAL LIGATION OTHER SURGICAL HISTORY 12/29/2023 Bilateral PROCEDURE:BRACHIOPLASTY;COMME NT:Procedure: BILATERAL BRACHIOPLASTY; Surgeon: Christian Briscoe MD; Location: [facility] MAIN OPERATING ROOM; Service: Plastics; Laterality: Bilateral; LIPOSUCTION 12/29/2023 Bilateral PROCEDURE:LIPOSUCTION;COMMENT :Procedure: WITH PRE LIPOSUCTION ARMS; Surgeon: Christian Briscoe MD; Location: [facility] MAIN OPERATING ROOM; Service: Plastics; Laterality: Bilateral; Medical History Medical History Date Comments MS (multiple sclerosis) ([facility] /HCC V24, CMS/HCC V28) DX:MS (multiple sclerosis) ([facility]);COMMENT:Relapsing/ remitting per pt Visual impairment DX:Visual impa [...] age to complete this topic Care Teams Facilities Operator Relationship Specialty Start Date End Date Crystal Tavarez MD [address] [place], [place] [address]lesa [place] PCP - General 12/29/23
--- OUTSIDE RECORDS SUMMARY | 2025-02-14 12:35 | XMS_ITS | Encounter Summary ---
Author Organization [facility] Address [address] [place] [address] Care Team Providers Care Spooling Supervisor Name Role Phone Unavailable Primary Care Provider Unavailabl e Encounter Details Date Type Department Care Team (Latest Contact Info) Description 10/21/2020 Lab Requisition [facility] COVID Drive Through [address] [place] [address] [address] [place] [address] Delmer May PA-C [address] [place] [address] [phone] Encounter for laboratory testing for COVID-19 virus [...]
--- OUTSIDE RECORDS SUMMARY | 2025-02-14 12:35 | XMS_ITS | Clinical Summary ---
Author Organization [facility] Address [address] [place] [address] Care Team Providers Care Air Shovel Operator Name Role Phone Unavailable Primary Care Provider [...]
--- OUTSIDE RECORDS SUMMARY | 2025-02-14 12:35 | XMS_ITS | Continuity of Care Document ---
Author Organization [facility] BEHAVIORAL HEALTH TECHNICIAN Oncolog y Address [address] [place] [phone]- Support Name Relationship Address Phone GLOBAL, IVF Personal Relationship Unknown Unavai lable COOK, ARIANNA Personal Relationship Unknown Unavai lable COOK, ARIANNA T Personal Relationship Unknown Unava ilable JÚNIOR, ARIANNA Personal Relationship Unknown Unavai lable COOK, ARIANNA Personal Relationship Unknown Unavai lable COOK, ARIANNA Personal Relationship Unknown Unavai lable COOK, ARIANNA Personal Relationship Unknown Unavai lable BLASCHECK, DEEPTI sibling Unknown Unavailable KG PIPPA unrelated friend Unknown Unavailabl e JÚNIOR, ARIANNA Personal Relationship Unknown Unavai lable COOK, ARIANNA Personal Relationship Unknown Unavai lable JÚNIOR, ARIANNA Personal Relationship Unknown Unavai lable COOK, ARIANNA spouse Unknown Unavailable JÚNIOR, SUMAYA Personal Relationship Unknown Unav ailable JÚNIOR, ARIANNA Personal Relationship Unknown Unavai lable COOK, ARIANNA Personal Relationship Unknown Unavai lable COOK, ARIANNA Personal Relationship Unknown Unavai lable COOK, ARIANNA Personal Relationship Unknown Unavai lable BLASCAK, DEEPTI sibling Unknown Unavailable JÚNIOR, ARIANNA Personal Relationship Unknown Unavai lable JÚNIOR, ARIANNA Personal Relationship Unknown Unavai lable COOK, ARIANNA Personal Relationship Unknown Unavai lable COOK, ARIANNA Personal Relationship Unknown Unavai lable COOK, ARIANNA Personal Relationship Unknown Unavai lable GLOBAL, IVF Personal Relationship Unknown Unavai lable RAKANUNEJAYEE, ARIANNA Personal Relationship Unknown U navailable BROWN, BRIAN mother Unknown Unavailable ARIANNA CALLEJAS Personal Relationship Unknown Unavai lable GLOBAL, IVF Personal Relationship Unknown Unavai lable Care Team Providers Care Timber Hewer Name Role Phone Corby RAMIREZ, Crystal Primary Care Physici an Encounter [facility] Date(s): 01/13/25 - 02/12/[address] [facility] BEHAVIORAL HEALTH TECHNICIAN Oncology [address] [place] [phone]- Encounter Type: Triage Allergies, Adverse Reactions, Alerts Substance Criticality Severity Reaction Reaction Severity Status penicillin Unable to assess criticality Unknown rash Active Zithromax Unable to assess criticality Unknown unknown Active Bee Stings anaphalaxis Active sulfa drugs hives Active Adhesive Bandage Act daniel Immunizations Given and Recorded Vaccine Date Status Refusal Reason SARS-CoV-2 (COVID-19) mRNA BNT-162b2 vac 02/02/21 Recorded SARS-CoV-2 (COVID-19) mRNA BNT-162b2 vac 01/11/21 Recorded tetanus/diphtheria/pertussis, acel(Tdap) 06/25/19 Given Influenza Virus Vaccine (oldterm) 08/23/18 Recorde d Influenza Virus Vaccine (oldterm) 08/21/17 Recorde d Influenza Virus Vaccine (oldterm) 1 08/21/08 Given diphtheria/tetanus/pertussis, acel(DTaP) 06/12/09 Recorded tetanus-diphtheria toxoids (Td) 01/28/05 Given Pneumococcal Vaccine (oldterm) 12/19/03 Given 1Admin Note: SONOFI PASTEUR given without incident denies col symptoms, denies egg allergy Medications Estradiol Patch 0.05 mg/24 hours twice weekly transdermal film, extended release 1 patch, Topically, Every Monday and , for 30 days, # 9 patch, 3 Refills, Hard Stop 05/24/2511:25:00 AM EDT, 01/24/25 11:25:00 AM EDT, [id number], Partial fill upon patient request if the prescription is for a schedule II opioid drug., 165, cm, 07/08/24 10:34:00 EDT, Height, 73, kg, 07/05/24 8:52:00 EDT, Dry Weight Start Date: 01/24/25 Stop Date: 05/24/25 Status: Ordered Quantity: 9.0 Unit: patch Repeat number: 4 Estradiol Patch 0.05 mg/24 hours twice weekly transdermal film, extended release 1 patch, Topically, Every Monday and , # 24 patch, 0 Refills, Maintenance, 05/24/25 11:25:00AM EDT, [id number], Partial fill upon patient request if the prescription is for a scheduleII opioid drug., 1 patch Topically Every Monday and ,x90 days, 165, cm, 07/08/24 10:34:00 EDT, Height, 73, kg, 07/05/24 8:52:00 EDT, Dry Weight Start Date: 05/24/25 Stop Date: 08/22/25 Status: Ordered Quantity: 24.0 Unit: patch Repeat number: 1 LORazepam 0.5 mg oral tablet TAKE 1 TABLET BY MOUTH TWICE A DAY NEEDED FOR ANXIETY Start Date: 12/05/23 Status: Ordered Repeat number: 1 Macrobid macrocrystals-monohydrate 100 mg oral capsule See Instructions, 1 capsule By Mouth Once prior to and after intercourse, # 12 capsule, 1 Refills, Soft Stop, 07/26/24 2:40:00 PM EDT, Capsule, [id number], Partial fill upon patient request if the prescription is for a schedule II opioid drug., 165, cm, 07/08/24 10:34:00 EDT, Height, 73, kg, 07/05/24 8:52:00 EDT, Dry Weight Start Date: 07/26/24 Status: Ordered Quantity: 12.0 Unit: capsule Repeat number: 2 Misc Rx Refills 0, Maintenance, Protandum for MS 1 tablet daily, 05/24/23 3:32:00 PM EDT, Supply Start Date: 05/24/23 Status: Ordered Repeat number: 1 Prometrium 100 mg oral capsule 1 capsule = 100 mg, By Mouth, Daily at bedtime, for 30 days, # 30 capsule, 3 Refills, Acute 05/07/2510:29:00 AM EDT, 01/07/25 10:29:00 AM EDT, [id number], Partial fill upon patient request if the prescription is for a schedule II opioid drug., 165, cm, 07/08/24 10:34:00 EDT, Height, 73, kg, 07/05/24 8:52:00 EDT, Dry Weight Start Date: 01/07/25 Stop Date: 05/07/25 Status: Ordered Quantity: 30.0 Unit: capsule Repeat number: 4 sertraline 100 mg oral tablet 1 tablet = 100 mg, By Mouth, Daily at bedtime Start Date: 2/27/24 Status: Ordered Repeat number: 1 Problem List Condition Confirmation Course Effective Dates Status Health Status Informant Bee sting allergy Confirmed Active Anxiety Confirmed Active Vitamin B12 deficiency Confirmed Active Dizziness Confirmed Active Family history of ischemic heart disease Confirmed Active Hypercholesterolemia Confirmed Active Hypokalemia Confirmed Active Kidney stone on left side Confirmed Active Microscopic hematuria Confirmed Active Multiple sclerosis Confirmed Active Palpitations Confirmed Active Panic disorder without agoraphobia Confirmed Active Perimenopause Confirmed Active Unexplained infertility Confirmed Active Social History Social History Type Response Smoking Status Never (less than 100 in lifetime) entered on: 02/09/23 Sex Sex Representation Female (finding) Patient Care team information Care Team Personnel Name: Maximiliano Ramos MD Position: [facility] QUALITY ASSURANCE SUPERVISOR MD Member Role: Lifetime QUALITY ASSURANCE SUPERVISOR Physician Address: [address] [place] [address] [facility] [place] [address]- Telecom: Name: Oneyda Estrada RN Position: [facility] RN Member Role: Primary Care Nurse Name: Lyric Harper RN Position: [facility] RN Supv Member Role: Primary Care Nurse Name: Crystal Tavarez MD Position: [facility] Physician - Primary Care Member Role: PCP Address: [address] [place] [phone]- Telecom: Name: Mara Toscano Position: [facility] Outreach Member Role: Lifetime Consulting Physician Care Team Related Persons Name: DEEPTI CHACON Name: DEEPTI PAEZ Name: BRIAN PHIPPS Name: ARIANNA CALLEJAS Name: PIPPA SAUL Insurance Providers Guarantor name: SUMAYA CALLEJAS Health Plan Information #: 1 Payer: [employer] Member Number: NA Policy Number: NA Group Number: NA
--- OUTSIDE RECORDS SUMMARY | 2025-02-14 12:35 | XMS_ITS | Continuity of Care Document ---
Author Organization [facility] SHIP CAPTAIN Oncolog y Address [address] [place] [phone]- Support Name Relationship Address Phone GLOBAL, IVF [...] RAKANUNEJAYEE, ARIANNA Personal Relationship Unknown U navailable DESIRE, BRIAN mother Unknown Unavailable JÚNIOR, ARIANNA Personal Relationship Unknown Unavai lable GLOBAL, IVF Personal Relationship Unknown Unavai lable Care Team Providers Care Gusset Ripper Name Role Phone Corby RAMIREZ, Crystal Primary Care Physici an Encounter [facility] Date(s): 01/14/25 - 02/13/25 [facility] SHIP CAPTAIN Oncology [address] [place] [address] Encounter Type: Triage Allergies, Adverse Reactions, Alerts [...] By Mouth, Daily at bedtime Start Date: 12/05/23 Status: Ordered Repeat number: 1 Problem List [...] team information Care Team Personnel Name: Maximiliano Raoms MD Position: [facility] IMPLEMENTATION CONSULTANT MD Member Role: Lifetime IMPLEMENTATION CONSULTANT Physician Address: [address] [place] [address] [place] [address]- Telecom: Name: Oneyda Estrada RN Position: [facility] RN Member Role: Primary Care Nurse Name: Lyric Harper RN Position: [facility] RN Supv Member Role: Primary Care Nurse Name: Crystal Tavarez MD Position: [facility] Physician - Primary Care Member Role: PCP Address: [address] [place] [phone]- Telecom: Name: Mara Toscano Position: [facility] Outreach Member Role: Lifetime Consulting Physician Care Team Related Persons Name: DEEPTI CHACON Name: DEEPTI PAEZ Name: BRIAN PHIPPS Name: ARIANNA CALLEJAS Name: PIPPA SAUL Insurance Providers Guarantor name: SUMAYA JÚNIOR Health Plan Information #: 1 Payer: [employer] Member Number: NA Policy Number: NA Group Number: NA
--- OUTSIDE RECORDS SUMMARY | 2025-02-14 12:36 | XMS_ITS | Continuity of Care Document ---
Author Organization [facility] INVESTMENT ANALYST Oncolog y Address [address] [place] [phone]- Support Name Relationship Address Phone GLOBAL, IVF [...] GLOBAL, IVF Personal Relationship Unknown Unavai lable MICHELAE, ARIANNA Personal Relationship Unknown U navailable DESIRE, BRIAN mother Unknown Unavailable JÚNIOR, ARIANNA Personal Relationship Unknown Unavai lable GLOBAL, IVF Personal Relationship Unknown Unavai lable Care Team Providers Care Patient Admitting Clerk Name Role Phone Corby RAMIREZ, Crystal Primary Care Physici an Encounter [facility] Date(s): 01/14/25 - 02/13/25 [facility] INVESTMENT ANALYST Oncology [address] [place] [phone]- Encounter Type: Triage Allergies, Adverse Reactions, Alerts [...] Name: Maximiliano Ramos MD Position: [facility] PROPOSAL REVIEW ANALYST MD Member Role: Lifetime PROPOSAL REVIEW ANALYST Physician Address: [address] [place] [address] [place] [address]- Telecom: Name: Oneyda Estrada RN Position: [facility] RN Member Role: Primary Care Nurse Name: Lyric Harper RN Position: [facility] RN Supv Member Role: Primary Care Nurse Name: Crystal Tavarez MD Position: [facility] Physician - Primary Care Member Role: PCP Address: [address] [place] [address]- Telecom: Name: Mara Toscano Position: [facility] Outreach Member Role: Lifetime Consulting Physician Care Team Related Persons Name: DEEPTI CHACON Name: DEEPTI PAEZ Name: BRIAN PHIPPS Name: ARIANNA CALLEJAS Name: PIPPA SAUL Insurance Providers Guarantor name: SUMAYA JÚNIOR Health Plan Information #: 1 Payer: [employer] Member Number: NA Policy Number: NA Group Number: NA
--- OUTSIDE RECORDS SUMMARY | 2025-02-14 12:36 | XMS_ITS | Clinical Summary ---
Author Organization [facility] Address [address] [place] [address] Care Team Providers Care Battery Assembler Name Role Phone Crystal Tavarez MD Primary [...] age to complete this topic Care Teams Battery Assembler Relationship Specialty Start Date End Date Crystal Tavarez MD [address] [facility] [place] [address] PCP - General Internal Medicine 12/29/23
--- NOTE | 2025-02-14 12:37 | MHC.OFFVISPS ---
Intake Intake Visit Reasons: depression Allergies Unable to Assess Allergy (Verified 01/19/25 00:45) HPI- Psychiatric Chief Complaint: depression HPI Narrative: Patient seen psychiatric follow-up telehealth appointment. Patient has shown improvement with the addition of escitalopram. Has been taking 5 mg with 50 mg of sertraline. Has not needed lorazepam p.r.n. except perhaps for once. Also has not been caught in any traffic on a highway where she could not pull off which was the significant trigger to her most recent severe increase in anxiety and panic on the day that she was caught in traffic in [place]. Some fatigue noted during the day no severe panic attacks agoraphobia more manageable some avoidance but has pushed herself to go to the appointments that she needs to. Past Psychiatric History: HISTORY OF COCAINE AND ALCOHOL ABUSE SOBER TIMES YEARS. 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 S HAS NOT TOLERATED MOOD STABILIZING AGENTS HAS BEEN STABLE ON SERTRALINE FOR YEARS T Mental Status Exam Mental Status Exam Narrative: Mental Status Exam Narrative: Appearance: Casually dressed Behavior: Cooperative appropriate psychomotor: Within normal limits Speech: Normal volume mildly pressured Thought proccess logical and goal-directed Thought content: focused on treatment coping strategies and improvement in symptoms Mood: ok with some anxiety Affect: Appropriate to mood full affect SI:denies HI:denies VH/AH:none Delusions: None Insight/judgment: Good insight and judgment Memory/cog: Intact Telehealth Telehealth Telehealth [facility] Location of provider rendering services: practice address Location of patient: address on file Patient Identification confirmed using: Name, : Yes Telehealth method: video Patient verbally consented to treatment: Yes Patient verbally consented to billing insurance company: Yes Patient informed of any privacy concerns related to visit: Yes Minutes spent on Phone/Video with Pt.: 10 Assessment and Plan Assessment & Plan (1) Panic disorder with agoraphobia: Status: Acute Code(s): F40.01 - Agoraphobia with panic disorder (2) Multiple sclerosis: Status: Acute Code(s): G35 - Multiple sclerosis (3) Mood disorder: Status: Acute Code(s): F39 - Unspecified mood [affective] disorder Plan Discussed with patient continue on 5 mg escitalopram for now with option to continue to increase to 7.5 mg has shown improvement after 1 week can then decrease sertraline to 25 mg monitor for any increase in panic disorder symptoms. Patient has been stable with p.r.n. lorazepam no evidence of abuse or tolerance has been sober for many years. Her conditions complicated by multiple sclerosis which can also be contributing to fatigue. Did discuss use of modafinil or are modafinil however given current panic symptoms would avoid at present time Counseling and coordination of Care Pt. Self Management counseling: Mindfulness Details-Self Mgmt counseling: Issues related to managing panic attacks and agoraphobia Medication management counseling: Effectiveness, Side effects and Dosing range Diagnosis and Prognosis Counseling: Adequacy of current interventions Details-Diagnosis/Prognosis counseling: Follow-up 4-6 weeks Details: I spent [20] minutes reviewing the record, seeing the patient and documenting in the medical record. Counseling provided to the patient/caregiver as outlined below. Addressed patient/caregiver concerns regarding current medication regime including effective adherence. Addressed patient/caregiver concerns regarding diagnosis and prognosis including accuracy of diagnosis, prognosis over time, impact of diagnosis. Addressed patient/caregiver concerns regarding impact of recent stressors. 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 PATIENT VERY ACTIVE IN RECOVERY. POSITIVE FAMILY HISTORY OF ANXIETY DISORDERS AND ADDICTION Substance History: PAST HISTORY OF ALCOHOL AND COCAINE USE GENERALLY CHARACTERIZED BY BINGEING Coding Level of Care Code Tele Est Pt Level 3 (94436) Diagnoses Panic disorder with agoraphobia F40.01 Multiple sclerosis G35 Mood disorder F39
== END 2025-02-14 17:38 | disposition home or self-care (01) ==
LOC: HO.HOP 12:30
PROVIDERS: PCP Internal Medicine; Visit Provider Psychiatry & Neurology Psychiatry
DX: F40.01 Agoraphobia with panic disorder (principal); G35 Multiple sclerosis; F39 Unspecified mood [affective] disorder
CPT/HCPCS: 99213

== ENCOUNTER → 2025-02-14 12:30 | Outpatient (BNVA) | payer BC, SELFPAY | PROVIDERS: PCP Internal Medicine; Visit Provider Psychiatry & Neurology Psychiatry ==

== ENCOUNTER 2025-04-22 10:11 | Outpatient (AMB) | payer BC, SELFPAY ==
--- NOTE | 2025-04-22 10:18 | A.OFFVIS_ITS ---
Intake Visit Reasons: MS Allergies azithromycin (From Zithromax) Allergy (Unknown, Verified 04/18/25 13:17) Unknown Penicillins Allergy (Unknown, Verified 04/18/25 13:17) Unknown Sulfa (Sulfonamide Antibiotics) Allergy (Unknown, Verified 04/18/25 13:17) Unknown HPI Comments Details: 55 yr old woman with RR-MS . No flare ups in her MS. Remains off DMD. Uses IV Solumedrol 1gm/ day for 5 days PRN for relapses. Feels very fatigued with the heat. Had a bout of palpitations one night. She was seen in [place] and was having a lot of PVCs. Was presyncopal. 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 Neck pain has resolved. Has been experiencing intermittent dizziness which she describes as lightheaded/off balance feeling along with intermittent throbbing headache since surgery. No falls. MS flare up with left facial numbness and floppy LUE similar to 2014 has resolved. Mental fog is fine. Recent labs were all normal. Had normal EMELY bilaterally. Last F/U MRI shows no change. Was numb on the right, had urinary incontinence and had a brain fog that made her feels confused, and had a minute of disorientation. Right face, arm and thigh and groin and foot dorsum. Prickly in right scalp also. Carotid doppler was normal. Cortisol is low. She has some thyroid nodules. Last real exacerbation on 05/25/15 . She feels worse in hot weather. She was seeing Dr. Cerda in [place]. She has had normal spinal fluid. Visual Evoked potential results were normal. Her sedimentation rate was 27. She has been tested for Lyme. She was first put on Copaxone 3 times a week. She stopped it after 3 months because of multiple skin reactions. She was then put on Gilenya which she took for 6 weeks but was very lethargic and her heart rate dropped into the 40s and 50s and that was discontinued in February of 2015. For 7 years she's had fatigue which she compensates by taking caffeine. She received 3 or 4 days of IV Solu-Medrol. Subsequently, in October 2014 she had a syncopal episode at work when she stood up, lost consciousness and again develop ed left-sided numbness and weakness that lasted longer and took longer to recover. She denies any visual symptoms. In retrospect, she says that for 2-3 years prior to the onset of her symptoms she was having transient left-sided numbness from one or 2 days. MRI 07/07/15 shows a linear right frontoparietal lesion perpendicular to the ventricle. C spine MRI was normal. [facility] Medical History (Updated 04/18/25 @ 13:19 by Judy Schultz MA) Cervical radiculopathy Chronic fatigue Central nervous system demyelinating disease Attention and concentration deficit Panic disorder with agoraphobia Mood disorder Panic disorder Multiple sclerosis Asthma Family History (Updated 04/18/25 @ 13:20 by Judy Schultz MA) Father Multiple sclerosis Review of Systems Const Details: Sleep:? Difficulty getting to sleepdenies.? Difficulty maintaining sleepdenies?.? Urge to move legsdenies.? Teeth grindingdenies.? Shouting or Kicking during sleep denies.? Abnormal behavior during sleepdenies.? Excessive sleepdenies.? Snoring denies.? Daytime sleepinessdenies. ???General/Constitutional:? Change in appetitedenies.? Chillsdenies.? Fatigueadmits.? Feverdenies.? Weight gaindenies.? Weight lossdenies. ???Ophthalmologic:? Blurred visiondenies.? Diminished visual acuitydenies. ???ENT:? Stuffinessdenies.? Decreased hearingdenies.? Dry mouthdenies.? Ear paindenies.? Nosebleeddenies.? Ringing in the earsdenies.? Sinus paindenies.? Sore throat denies.? Swollen glandsdenies. ???Endocrine:? Cold intolerancedenies.? Excessive thirstdenies.? Frequent urinationdenies.? Heat intolerancedenies. ???Respiratory:? Shortness of breathdenies.? Chest paindenies.? Coughdenies. ???Breast:? Breast lumpdenies.? Nipple dischargedenies. ???Cardiovascular:? Chest pain at restdenies.? Chest pain with exertiondenies.? Claudicationdenies .? Dizzinessdenies.? Fluid accumulation in the legsdenies.? Irregular heartbeat denies.? Palpitationsdenies. ???Gastrointestinal:? Abdominal paindenies.? Constipationdenies.? Diarrheadenies.? Difficulty swallowingdenies.? Heartburndenies.? Nauseadenies.? Rectal bleedingdenies. ???Hematology:? Easy bruisingdenies.? Prolonged bleedingdenies. ???Genitourinary:? Frequent urinationdenies.? Urgencydenies.? Incontinencedenies.? Erectile Dysfunctiondenies. ???Musculoskeletal:? Neck paindenies.? Back paindenies.? Muscle achesadmits.? Painful jointsdenies.? Sciaticadenies.? Weaknessadmits. ???Podiatric:? Difficulty walkingdenies.? Foot numbnessdenies. ???Neurologic:? Difficulty swallowingdenies.? Balance difficultydenies.? Coordinationnormal.? Difficulty speakingdenies.? Dizzinessdenies.? Faintingdenies.? Gait abnormality denies.? Headachedenies.? Loss of strengthdenies.? Loss of use of extremity denies.? Low back paindenies.? Memory lossdenies.? Seizuresdenies.? Ticsdenies.? Tingling/Numbnessleft sided numbness.? Transient loss of visiondenies.? Tremor denies. ???Psychiatric:? Anxietydenies.? Auditory/visual hallucinationsdenies.? Delusionsdenies.? Depressed mooddenies.? Stressorsdenies.? Substance abusedenies.? Suicidal thoughtsdenies. Physical Exam Neuro Other: Mini Mental Status Exam: Level of Consciousness:??Alert.?Orientation:??Knows correct year, month, date, day and season,?Knows correct city, county and state. Knows correct location and floor.?Registration:??Able to register 3 objects.?Attention:??Serial 7's performed accurately.?Recall:??Able to recall 3 out of 3 objects.?Language:??Normal spontaneous speech, fluency, repetition,naming, comprehension, reading and writing.?Total Score:??30/30.? General Examination: GENERAL APPEARANCE:??normal,?in no acute distress.?HEAD:??normocephalic,?atraumatic.?EYES:??sclera non- icteric,?conjunctiva clear.?EARS:??auditory canal clear,?tympanic membrane intact, clear.?NOSE:??no lesions.?ORAL CAVITY:??gums normal,?mucosa moist,?no lesions.?THROAT:??clear.?NECK/THYROID:??no cervical lymphadenopathy,?thyroid normal,?neck supple, full range of motion,?no carotid bruit.?SKIN:??no rashes,?no significant birthmarks.?HEART:??S1, S2 normal,?no murmurs.?LUNGS:??clear anteriorly and posteriorly.?CHEST:??no gross rib deformity,?clear to auscultation.?BACK:??normal exam of spine.?EXTREMITIES:??no edema.?PERIPHERAL PULSES:??normal.?PSYCH:??alert, oriented,?cognitive function intact,?cooperative with exam.? Neurological: Abnormal neurological findings:??Subtle left-sided hyperreflexia. Decreased sensation to touch and pinprick sensation on the entire left side. Mild proximal muscle weakness in LE..?Mental Status:??alert and oriented X 3,?Normal attention, orientation, memory and affect.?Cranial Nerves:??Pupils are equal, round and reactive to light. Fundoscopy shows normal disc bilaterally. External occular muscles are intact. Visual anders are full, no ptosis. Face is symmetrical, no facial weakness or droop. Facial sensations are normal. Tongue protrudes in midline. Palate elevates symmetrically. Shoulder shrugging is normal..?Motor Examination:??Normal muscle tone, bulk and strength,?No atrophy or fasciculations,?No drift of the extended upper extremities,?Deep tendon reflexes are 2+?,?Plantars are flexor?.?Straight Leg Raising:??90 degrees.?Sensory Exam:??As above.?Coordination:??no ataxia,?no titubation,?cooemq-ce-rumx, ysrt-sppb-hgah test and rapid alternating movements were normal.?Gait Exam:??Within normal limits.?Cerebellar Signs:??Xiwrdq-vz-rwyy and awxx-gl-orui is normal,?no dysdiadochokinesia?.?Extrapyramidal System:??No tremor, rigidity with normal facial expressions,?No bradykinesia, no bradyphrenia. Normal arm swing and posture. No propulsion or retropulsion.?Speech:??Normal,?no dysphasia or dysarthria..? Assessment & Plan Assessment & Plan (1) Multiple sclerosis: Code(s): G35 - Multiple sclerosis Category: Medical (2) Attention and concentration deficit: Code(s): R41.840 - Attention and concentration deficit Category: Medical Plan Continue current meds. Stay in A/C and keep core temp. down. F/U with cardiology for palpitations and presyncope/ syncope. Coding Level of Care Code Est Pt Level 4 (27413) Diagnoses Multiple sclerosis G35 Attention and concentration deficit R41.845
--- OUTSIDE RECORDS SUMMARY | 2025-04-22 11:17 | XMS_ITS | Encounter Summary ---
Author Organization [facility] Address [address] [place] [address] Care Team Providers Care Forest Economics Professor Name Role Phone Unavailable Primary Care Provider Unavailabl e Encounter Details Date Type Department Care Team (Latest Contact Info) Description 10/21/2020 Lab Requisition [facility] COVID [address] Through [address] [place] [address] [address] [place] [address] Delmer May PA-C [address] [place] [address] [phone] Encounter for laboratory testing for COVID-19 virus [...] Bonny Pitts, Ph.D., Laboratory DirectorTests performed at [facility] Nasopharyngeal swab / Unknown 10/21/2020 12:43 PM EST 10/21/2020 12:44 PM EST Narrative LEXIE HUGGINS - 10/22/2020 6:10 PM EST Performed by [facility] [address] [place] [address], CLIA# [id number] and [place] License# [id number] us Delmer May PA-C MICROBIOLOGY - GENERAL OR DERABLES Final Result LEXIE HUGGINS documented in this encounter Visit Diagnoses Diagnosis Encounter for laboratory testing for COVID-19 virus documented in this encounter
--- OUTSIDE RECORDS SUMMARY | 2025-04-22 11:17 | XMS_ITS ---
Author Name [facility] Organization Unknown History of Medication Use Medication Directions Dispensed Refills Start Date End Date Stat us lactated ringers infusion 50 mL/hr, Intravenous, Continuous, Starting on Mon12/29/23 at 0600, Pre-op 12/29/2023 active meperidine (DEMEROL) 25 MG/ML injection 12.5 mg 12.5 mg, Intravenous, Every 30 min PRN, shivering not due to postoperative hypothermia., Starting on Mon12/29/23 at 0946, For 2 doses, PACU/Phase 1May repeat x 1 in 30 minutes. 12/29/2023 active Allergies Allergen Reaction Severity Comment Documented Date Source Statu s SULFA ANTIBIOTICS RASH 12/25/2023 [facility] a ctive AZITHROMYCIN RASH [facility] OTHER EKG gel/ has caused Burn like skin issues in past [facility] PENICILLINS RASH [facility] Problems Problem Status Onset Date Problem Type Date of Resoluti on Source Excess skin of upper extremity active EncounterDiagnosisAct CTT HSFRAN Encounters Encounter Type Encounter Reason Primary Diagnosis Location Date Ambulatory Excessive and redundant skin and subcutaneous tissue Excessive and redundant skin and subcutaneous tissue [facility] [place]23 Care Team Organization Name Specialty Phone Email Start Date End Da te [facility]
--- OUTSIDE RECORDS SUMMARY | 2025-04-22 11:17 | XMS_ITS | Clinical Summary ---
Author Organization [facility] Address [address] [place] [address] Care Team Providers Care Tentering Machine Off Bearer Name Role Phone Crystal Tavarez MD Primary [...] 79 12/29/2023 11:49 AM EDT Temperature 36.8 C (98.3 F) 12/29/2023 11:39 AM EDT Respiratory Rate 16 12/29/2023 11:49 AM EDT [...] (1 of 2) 2021 Influenza Vaccine (#1) 2025 Pneumococcal Vaccine Aged Out No long er eligible based on patient's age to complete this topic RSV Ped < 20 months Aged Out No longe r eligible based on patient's age to complete this topic Care Teams Tentering Machine Off Bearer Relationship Specialty Start Date End Date Crystal Tavarez MD [address] [facility] [place] [address] PCP - General Internal Medicine 12/29/23
--- OUTSIDE RECORDS SUMMARY | 2025-04-22 11:17 | XMS_ITS | Clinical Summary ---
Author Organization [facility] Address [address] [place] [address] Care Team Providers Care Senior Operator Name Role Phone Crystal Tavarez MD Primary Care Provide r Surgical History Surgery Date Site/Laterality Comments COLONOSCOPY PROCEDURE:COLONOSCOPY BACK SURGERY PROCEDURE:BACK SURGERY;COMMENT:cervial disc replacement DILATION AND CURETTAGE OF UTERUS PROCEDURE:DILATION AND CURETTAGE OF UTERUS TUBAL LIGATION PROCEDURE:TUBAL LIGATION OTHER SURGICAL HISTORY 12/29/2023 Bilateral PROCEDURE:BRACHIOPLASTY;COMME NT:Procedure: BILATERAL BRACHIOPLASTY; Surgeon: Christian Briscoe MD; Location: [facility] MAIN OPERATING ROOM; Service: Plastics; Laterality: Bilateral; LIPOSUCTION 12/29/2023 Bilateral PROCEDURE:LIPOSUCTION;COMMENT :Procedure: WITH PRE LIPOSUCTION ARMS; Surgeon: Christian Briscoe MD; Location: [facility] MAIN OPERATING ROOM; Service: Plastics; Laterality: Bilateral; Medical History Medical History Date Comments MS (multiple sclerosis) ([facility] /HCC V24, CMS/HCC V28) DX:MS (multiple sclerosis) ([facility]);COMMENT:Relapsing/ remitting per pt Visual impairment DX:Visual impa [...] - 2023-2 5 season) 2024 Influenza Vaccine (#1) 2025 HIB Vaccines Aged Out No longer [...] age to complete this topic Care Teams Senior Operator Relationship Specialty Start Date End Date Crystal Tavarez MD [address] [place], [place] [address]RAPHAEL PCP - General 12/29/23
== END 2025-04-22 10:34 | disposition home or self-care (01) ==
LOC: HO.HSM 10:12
PROVIDERS: PCP Internal Medicine; Referring Provider Internal Medicine; Visit Provider Psychiatry & Neurology Neurology
DX: G35 Multiple sclerosis (principal); R41.840 Attention and concentration deficit
CPT/HCPCS: 99214

== ENCOUNTER 2025-05-09 13:25 | Outpatient (AMB) | payer BC, SELFPAY ==
--- OUTSIDE RECORDS SUMMARY | 2025-05-09 13:29 | XMS_ITS | Encounter Summary ---
Author Organization [facility] Address [address] [place] [address] Care Team Providers Care Rig Site Engineer Name Role Phone Unavailable Primary Care Provider Unavailabl e Encounter Details Date Type Department Care Team (Latest Contact Info) Description 10/21/2020 Lab Requisition [facility] COVID Drive Through [address] [place] [address] [address] [place] [address] Delmer May PA-C [address] [place] [phone] Encounter for laboratory testing for COVID-19 virus [...] Bonny Pitts, Ph.D., Laboratory DirectorTests performed at [facility] Microbiology Nasopharyngeal swab / Unknown 10/21/2020 12:43 PM EST 10/21/2020 12:44 PM EST Narrative LEXIE HUGGINS - 10/22/2020 6:10 PM EST Performed by [facility] [address] [place] [address], CLIA# [id number] and [place] License# [id number] us Delmer May PA-C MICROBIOLOGY - GENERAL OR DERABLES Final Result LEXIE HUGGINS documented in this encounter Visit Diagnoses Diagnosis Encounter for laboratory testing for COVID-19 virus documented in this encounter
--- OUTSIDE RECORDS SUMMARY | 2025-05-09 13:29 | XMS_ITS | Clinical Summary ---
Author Organization [facility] Address [address] [place] [address] Care Team Providers Care Rehab Director Name Role Phone Crystal Tavarez MD Primary [...] age to complete this topic Care Teams Rehab Director Relationship Specialty Start Date End Date Crystal Tavarez MD [address] [facility] [place] [address] PCP - General Internal Medicine 12/29/23
--- OUTSIDE RECORDS SUMMARY | 2025-05-09 13:29 | XMS_ITS | Clinical Summary ---
Author Organization [facility] Address [address] [place] [address] Care Team Providers Care Pets Salesperson Name Role Phone Crystal Tavarez MD Primary Care Provide r Surgical History Surgery Date Site/Laterality Comments COLONOSCOPY PROCEDURE:COLONOSCOPY BACK SURGERY PROCEDURE:BACK SURGERY;COMMENT:cervial disc replacement DILATION AND CURETTAGE OF UTERUS PROCEDURE:DILATION AND CURETTAGE OF UTERUS TUBAL LIGATION PROCEDURE:TUBAL LIGATION OTHER SURGICAL HISTORY 12/29/2023 Bilateral PROCEDURE:BRACHIOPLASTY;COMME NT:Procedure: BILATERAL BRACHIOPLASTY; Surgeon: Christian Briscoe MD; Location: [facility] MAIN OPERATING ROOM; Service: Plastics; Laterality: Bilateral; LIPOSUCTION 12/29/2023 Bilateral PROCEDURE:LIPOSUCTION;COMMENT :Procedure: WITH PRE LIPOSUCTION ARMS; Surgeon: Christian Briscoe MD; Location: [facility] MAIN OPERATING ROOM; Service: Plastics; Laterality: Bilateral; Medical History Medical History Date Comments MS (multiple sclerosis) ([facility] /HCC V24, CMS/HCC V28) DX:MS (multiple sclerosis) ([facility]);COMMENT:Relapsing/ remitting per pt Visual impairment [...] 2) 2021 Colorectal Cancer Screening: Colonoscopy 06/03/2024 HIV Screening 06/03/2024 Hepatitis C Screening 06/03/2024 Social Influencers of Health Screening 06/03/2024 COVID-19 Vaccine (1 - 2023-2 5 season) 2024 Depression Screening 10/09/2024 Influenza Vaccine (#1) 2025 HIB Vaccines Aged [...] age to complete this topic Care Teams Pets Salesperson Relationship Specialty Start Date End Date Crystal Tavarez MD [address] [place], [place] [address]RAPHAEL PCP - General 12/29/23
--- NOTE | 2025-05-09 13:49 | MHC.OFFVISPS ---
Intake Intake Visit Reasons: depression Allergies azithromycin (From Zithromax) Allergy (Unknown, Verified 04/18/25 13:17) Unknown Penicillins Allergy (Unknown, Verified 04/18/25 13:17) Unknown Sulfa (Sulfonamide Antibiotics) Allergy (Unknown, Verified 04/18/25 13:17) Unknown HPI- Psychiatric Chief Complaint: depression Intake Note: HPI Narrative: Patient seen psychiatric follow-up. Was stable on sertraline for an extended period of time with rare use of lorazepam. History of alcohol and cocaine use but not for a number of years. Has never missed used rare use of lorazepam for panic Past Psychiatric History: HISTORY OF COCAINE AND ALCOHOL ABUSE SOBER TIMES YEARS. 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 S HAS NOT TOLERATED MOOD STABILIZING AGENTS HAS BEEN STABLE ON SERTRALINE FOR YEARS T Mental Status Exam Mental Status Exam Narrative: Mental Status Exam Narrative: Appearance: Casually dressed Behavior: Cooperative appropriate psychomotor: Within normal limits Speech: Normal volume mildly pressure d Thought proccess logical and goal-directed Thought content: focused on treatment coping strategies and improvement in symptoms anxiety regarding still having symptoms Mood: ok with some anxiety Affect: Appropriate to mood full affect SI:denies HI:denies VH/AH:none Delusions: None Insight/judgment: Good insight and judgment Memory/cog: Intact Telehealth Telehealth Telehealth Platform: [facility] Location of provider rendering services: practice address Location of patient: address on file Patient Identification confirmed using: Name, : Yes Telehealth method: video Patient verbally consented to treatment: Yes Patient verbally consented to billing insurance company: Yes Patient informed of any privacy concerns related to visit: Yes Minutes spent on Phone/Video with Pt.: 15 Assessment and Plan Assessment & Plan (1) Panic disorder: Status: Acute Code(s): F41.0 - Panic disorder [episodic paroxysmal anxiety] Plan DISCUSSED OPTION TO INTERMITTENTLY USE LOW-DOSE ATIVAN FOR 2 OR 3 DAYS B.I.D. OR T.I.D. IF IN A SIGNIFICANT PANIC ESCALATION. USE LEXAPRO AT LOWEST EFFECTIVE DOSE HIGHER DOSES SEEM TO TRIGGER MORE ANXIETY. THIS IS NOT UNCOMMON PEOPLE WITH PANIC DISORDER PATIENT ALSO HAS A MASS WHICH MAY BE A CONTRIBUTING FACTOR TO HER SYMPTOMS. 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 Self Management counseling: Cognitive restructuring and Exposure Medication management counseling: Effectiveness, Side effects and Dosing range Diagnosis and Prognosis Counseling: Impact of diagnosis on life functions and Problematic behaviors secondary to diagnosis Details: I spent [20] minutes reviewing the record, seeing the patient and documenting in the medical record. Counseling provided to the patient/caregiver as outlined below. Addressed patient/caregiver concerns regarding current medication regime including effective adherence. Addressed patient/caregiver concerns regarding diagnosis and prognosis including accuracy of diagnosis, prognosis over time, impact of diagnosis. Addressed patient/caregiver concerns regarding impact of recent stressors. 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 PATIENT VERY ACTIVE IN RECOVERY. POSITIVE FAMILY HISTORY OF ANXIETY DISORDERS AND ADDICTION Substance History: PAST HISTORY OF ALCOHOL AND COCAINE USE GENERALLY CHARACTERIZED BY BINGEING Coding Level of Care Code Tele Est Pt Level 3 (66618) Diagnoses Panic disorder F41.0
== END 2025-05-09 15:32 | disposition home or self-care (01) ==
LOC: HO.HOP 13:25
PROVIDERS: PCP Internal Medicine; Visit Provider Psychiatry & Neurology Psychiatry
DX: F41.0 Panic disorder [episodic paroxysmal anxiety] (principal)
CPT/HCPCS: 99213

== ENCOUNTER 2025-06-05 10:07 | Outpatient (AMB) | payer BC, SELFPAY ==
--- NOTE | 2025-06-05 10:14 | MHC.OFFVISPS ---
Intake Vital Signs 06/05/25 10:40 BP 124/84 Pulse 67 Intake Visit Reasons: depression Allergies azithromycin (From Zithromax) Allergy (Unknown, Verified 04/18/25 13:17) Unknown Penicillins Allergy (Unknown, Verified 04/18/25 13:17) Unknown Sulfa (Sulfonamide Antibiotics) Allergy (Unknown, Verified 04/18/25 13:17) Unknown HPI- Psychiatric Chief Complaint: depression HPI Narrative: Patient seen psychiatric follow-up. Patient doing better with lower dose Lexapro off sertraline doing better with driving still has a background level of anxiety. Occasional insomnia Past Psychiatric History: HISTORY OF COCAINE AND ALCOHOL ABUSE SOBER TIMES YEARS. 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 S HAS NOT TOLERATED MOOD STABILIZING AGENTS HAS BEEN STABLE ON SERTRALINE FOR YEARS T Mental Status Exam Mental Status Exam Narrative: Mental Status Exam Narrative: Appearance: Casually dressed Behavior: Cooperative appropriate psychomotor: Within normal limits Speech: Normal volume mildly pressure d Thought proccess logical and goal-directed Thought content: focused on treatment coping strategies and current improvement Mood: Good Affect: Appropriate to mood full affect SI:denies HI:denies VH/AH:none Delusions: None Insight/judgment: Good insight and judgment Memory/cog: Intact Assessment and Plan Assessment & Plan (1) Panic disorder with agoraphobia: Status: Acute Code(s): F40.01 - Agoraphobia with panic disorder (2) Multiple sclerosis: Status: Acute Code(s): G35 - Multiple sclerosis Plan lower lexapro 2.5 mg clonidine o.05-0.1 for anxiety has periods of increased adrenaline to assess risks benefits alternatives higher dose SSRIs at times have contributed to anxiety Medications: New clonazepam (Klonopin) 0.25 - 0.5 mg (0.5 - 1 x 0.5 mg) PO BID 20 tabs 1RF 10 days clonidine HCl 0.05 - 0.1 mg (0.5 - 1 x 0.1 mg) PO BID PRN 30 tabs 1RF anxiety Discontinued sertraline Discontinued Reason: Doctor's Order 75 mg (1.5 x 50 mg) PO DAILY 45 tabs 2RF Counseling and coordination of Care Details-Self Mgmt counseling: Issues related to management of anxiety and driving Medication management counseling: Effectiveness and Side effects Diagnosis and Prognosis Counseling: Impact of diagnosis on life functions and Adequacy of current interventions Details: I spent [28] minutes reviewing the record, seeing the patient and documenting in the medical record. Counseling provided to the patient/caregiver as outlined below. Addressed patient/caregiver concerns regarding current medication regime including effective adherence. Addressed patient/caregiver concerns regarding diagnosis and prognosis including accuracy of diagnosis, prognosis over time, impact of diagnosis. Addressed patient/caregiver concerns regarding impact of recent stressors. 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 PATIENT VERY ACTIVE IN RECOVERY. POSITIVE FAMILY HISTORY OF ANXIETY DISORDERS AND ADDICTION Substance History: PAST HISTORY OF ALCOHOL AND COCAINE USE GENERALLY CHARACTERIZED BY BINGEING Coding Level of Care Code Est Pt Level 4 (86732) Diagnoses Panic disorder with agoraphobia F40.01 Multiple sclerosis G35
[2025-06-05 10:40] VITALS: BP 124/84; PULSE 67
--- OUTSIDE RECORDS SUMMARY | 2025-06-05 11:24 | XMS_ITS | Encounter Summary ---
Author Organization [facility] Address [address] [place] [address] Care Team Providers Care Passenger Brakeman Name Role Phone Unavailable Primary Care Provider Unavailabl e Encounter Details Date Type Department Care Team (Latest Contact Info) Description 10/21/2020 Lab Requisition [facility] COVID Drive Through [address] [place] [address] [address] [place] [address] Delmer May PA-C [address] [place] [address] [phone] Encounter for laboratory testing for COVID-19 virus [...] Bonny Pitts, Ph.D., Laboratory DirectorTests performed at [facility] Microbiology Nasopharyngeal swab / Unknown 10/21/2020 12:43 PM EST 10/21/2020 12:44 PM EST Narrative LEXIE HUGGINS - 10/22/2020 6:10 PM EST Performed by [facility] [address] [place] [address], CLIA# [id number] and [place] License# [id number] us Delmer May PA-C MICROBIOLOGY - GENERAL OR DERABLES Final Result LEXIE HUGGINS documented in this encounter Visit Diagnoses Diagnosis Encounter for laboratory testing for COVID-19 virus documented in this encounter
--- OUTSIDE RECORDS SUMMARY | 2025-06-05 11:24 | XMS_ITS | Clinical Summary ---
Author Organization [facility] Address [address] [place] [address] Care Team Providers Care Production Control Analyst Name Role Phone Crystal Tavarez MD Primary [...] age to complete this topic Care Teams Production Control Analyst Relationship Specialty Start Date End Date Crystal Tavarez MD [address] [facility] [place] [address] PCP - General Internal Medicine 12/29/23
--- OUTSIDE RECORDS SUMMARY | 2025-06-05 11:24 | XMS_ITS | Clinical Summary ---
Author Organization [facility] Address [address] [place] [address] Care Team Providers Care Ups Driver Name Role Phone Crystal Tavarez MD Primary Care Provide r Surgical History Surgery Date Site/Laterality Comments COLONOSCOPY PROCEDURE:COLONOSCOPY BACK SURGERY PROCEDURE:BACK SURGERY;COMMENT:cervial disc replacement DILATION AND CURETTAGE OF UTERUS PROCEDURE:DILATION AND CURETTAGE OF UTERUS TUBAL LIGATION PROCEDURE:TUBAL LIGATION OTHER SURGICAL HISTORY 12/29/2023 Bilateral PROCEDURE:BRACHIOPLASTY;COMME NT:Procedure: BILATERAL BRACHIOPLASTY; Surgeon: Christian Briscoe MD; Location: [facility] MAIN OPERATING ROOM; Service: Plastics; Laterality: Bilateral; LIPOSUCTION 12/29/2023 Bilateral PROCEDURE:LIPOSUCTION;COMMENT :Procedure: WITH PRE LIPOSUCTION ARMS; Surgeon: Christian Briscoe MD; Location: [facility] MAIN OPERATING ROOM; Service: Plastics; Laterality: Bilateral; Medical History Medical History Date Comments MS (multiple sclerosis) ([facility] /HCC V24, CMS/HCC V28) DX:MS (multiple sclerosis) ([facility]);COMMENT:Relapsing/ remitting per pt Visual impairment DX:Visual [...] age to complete this topic Care Teams Ups Driver Relationship Specialty Start Date End Date Crytsal Tavarez MD [address] [place], [place] [address]RAPHAEL PCP - General 12/29/23
--- OUTSIDE RECORDS SUMMARY | 2025-06-05 11:24 | XMS_ITS | Encounter Summary ---
Author Organization [facility] Address [address] [place] [address] Care Team Providers Care Mergers And Acquisitions Consultant Name Role Phone Unavailable Primary Care Provider Unavailabl e Encounter Details Date Type Department Care Team (Latest Contact Info) Description 10/21/2020 Lab Requisition [facility] COVID Drive Through [address] [place] [address] [address] [place] [address] Delmer May PA-C [address] [place] [address] [phone] Encounter for laboratory testing for COVID-19 virus [...]
--- OUTSIDE RECORDS SUMMARY | 2025-06-05 11:24 | XMS_ITS | Clinical Summary ---
Author Organization [facility] Address [address] [place] [address] Care Team Providers Care Rd Mechanical Engineer Name Role Phone Unavailable Primary Care [...]
== END 2025-06-05 11:05 | disposition home or self-care (01) ==
LOC: HO.HOP 10:07
PROVIDERS: PCP Internal Medicine; Visit Provider Psychiatry & Neurology Psychiatry
DX: F40.01 Agoraphobia with panic disorder (principal); G35 Multiple sclerosis
CPT/HCPCS: 99214

== ENCOUNTER 2025-06-13 17:18 | Outpatient (AMB) | payer BC, SELFPAY ==
--- NOTE | 2025-06-13 13:39 | A.OFFPSYCH_ITS ---
Intake Intake Visit Reasons: depression Allergies azithromycin (From Zithromax) Allergy (Unknown, Verified 04/18/25 13:17) Unknown Penicillins Allergy (Unknown, Verified 04/18/25 13:17) Unknown Sulfa (Sulfonamide Antibiotics) Allergy (Unknown, Verified 04/18/25 13:17) Unknown HPI- Psychiatric Chief Complaint: depression HPI Narrative: Patient seen in psychiatric follow-up. Patient's Lexapro has been a 2.5 mg she has not had any ongoing panic has been taking intermittent clonazepam half tablet 0.25 mg. Has been feeling significantly better able to travel and drive No complaints of side effects no relapse with MS has avoided use of clonazepam because of sedation Past Psychiatric History: HISTORY OF COCAINE AND ALCOHOL ABUSE SOBER TIMES Y EARS. 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 S HAS NOT TOLERATED MOOD STABILIZING AGENTS HAS BEEN STABLE ON SERTRALINE FOR YEARS T Mental Status Exam Mental Status Exam Narrative: Mental Status Exam Narrative: Appearance: Casually dressed Behavior: Cooperative appropriate psychomotor: Within normal limits Speech: Normal volume mildly pressure d Thought proccess logical and goal-directed Thought content: focused on treatment coping strategies and current improvement Mood: Good Affect: Appropriate to mood full affect SI:denies HI:denies VH/AH:none Delusions: None Insight/judgment: Good insight and judgment Memory/cog: Intact Telehealth Telehealth Telehealth Platform: [employer] Location of provider rendering services: practice address Location of patient: address on file Patient Identification confirmed using: Name, : Yes Telehealth method: video Patient verbally consented to treatment: Yes Patient verbally consented to billing insurance company: Yes Patient informed of any privacy concerns related to visit: Yes Minutes spent on Phone/Video with Pt.: 15 Assessment and Plan Assessment & Plan (1) Panic disorder with agoraphobia: Status: Acute Code(s): F40.01 - Agoraphobia with panic disorder (2) Multiple sclerosis: Status: Acute Code(s): G35 - Multiple sclerosis Plan Discussed taking 0.25 b.i.d. clonazepam for a week to try and stabilize ongoing intermittent panic attacks and then tried to just use as needed continue Lexapro 2.5 mg daily. Consider alternative if not effective Mood out of cullen good Her conditions compromised by history of TMS question intermittent MS fatigue. Follow-up 4 weeks Counseling and coordination of Care Medication management counseling: Effectiveness, Side effects and Dosing range Diagnosis and Prognosis Counseling: Impact of diagnosis on life functions and Adequacy of current interventions Details: I spent [20] minutes reviewing the record, seeing the patient and documenting in the medical record. Counseling provided to the patient/caregiver as outlined below. Addressed patient/caregiver concerns regarding current medication regime including effective adherence. Addressed patient/caregiver concerns regarding diagnosis and prognosis including accuracy of diagnosis, prognosis over time, impact of diagnosis. Addressed patient/caregiver concerns regarding impact of recent stressors. 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 PATIENT VERY ACTIVE IN RECOVERY. POSITIVE FAMILY HISTORY OF ANXIETY DISORDERS AND ADDICTION Substance History: PAST HISTORY OF ALCOHOL AND COCAINE USE GENERALLY CHARACTERIZED BY BINGEING Coding Level of Care Code Tele Est Pt Level 3 (34252) Diagnoses Panic disorder with agoraphobia F40.01 Multiple sclerosis G35
--- OUTSIDE RECORDS SUMMARY | 2025-06-13 17:19 | XMS_ITS | Clinical Summary ---
Author Organization [facility] Address [address] [place] [address] Care Team Providers Care Business Law Teacher Name Role Phone Unavailable Primary Care Provider [...] of 2) 2021 COVID-19 Vaccine (1 - season) 2025
--- OUTSIDE RECORDS SUMMARY | 2025-06-13 17:19 | XMS_ITS | Encounter Summary ---
Author Organization [facility] Address [address] [place] [address] Care Team Providers Care Candy Attendant Name Role Phone Unavailable Primary Care Provider Unavailabl e Encounter Details Date Type Department Care Team (Latest Contact Info) Description 10/21/2020 Lab Requisition [facility] COVID Drive Through [address] [place] [address] [address] [place] [address] Delmer May PA-C [address] [place] [address] [phone] Encounter for laboratory testing for COVID-19 virus [...]
--- OUTSIDE RECORDS SUMMARY | 2025-06-13 17:19 | XMS_ITS | Clinical Summary ---
Author Organization [facility] Address [address] [place] [address] Care Team Providers Care Biscuit Packer Name Role Phone Crystal Tavarez MD Primary Care Provide r Surgical History Surgery Date Site/Laterality Comments COLONOSCOPY PROCEDURE:COLONOSCOPY BACK SURGERY PROCEDURE:BACK SURGERY;COMMENT:cervial disc replacement DILATION AND CURETTAGE OF UTERUS PROCEDURE:DILATION AND CURETTAGE OF UTERUS TUBAL LIGATION PROCEDURE:TUBAL LIGATION OTHER SURGICAL HISTORY 12/29/2023 Bilateral PROCEDURE:BRACHIOPLASTY;COMME NT:Procedure: BILATERAL BRACHIOPLASTY; Surgeon: Christian Briscoe MD; Location: MAIN OPERATING ROOM; Service: Plastics; Laterality: Bilateral; LIPOSUCTION 12/29/2023 Bilateral PROCEDURE:LIPOSUCTION;COMMENT :Procedure: WITH PRE LIPOSUCTION ARMS; Surgeon: Christian Briscoe MD; Location: MAIN OPERATING ROOM; Service: Plastics; Laterality: Bilateral; Medical History Medical History Date Comments MS (multiple sclerosis) ([facility] /HCC V24, CMS/HCC V28) DX:MS (multiple [...] 06/03/2024 Social Influencers of Health Screening 06/03/2024 Depression Screening 10/09/2024 COVID-19 Vaccine (1 - 2023-2 5 season) 2025 Influenza Vaccine (#1) 2025 HIB Vaccines Aged [...] age to complete this topic Care Teams Biscuit Packer Relationship Specialty Start Date End Date Crystal Tavarez MD [address] [place], [place] [address]RAPHAEL PCP - General 12/29/23
--- OUTSIDE RECORDS SUMMARY | 2025-06-13 17:19 | XMS_ITS | Encounter Summary ---
Author Organization [facility] Address [address] [place] [address] Care Team Providers Care Can Coverer Name Role Phone Unavailable Primary Care Provider Unavailabl e Encounter Details Date Type Department Care Team (Latest Contact Info) Description 10/21/2020 Lab Requisition [facility] COVID Drive Through [address] [place] [address] [address] [place] [address] Delmer May PA-C [address] [place] [address] [phone] Encounter for laboratory testing for COVID-19 virus [...] Bonny Pitts, Ph.D., Laboratory DirectorTests performed at [facility] Microbiology Nasopharyngeal swab / Unknown 10/21/2020 12:43 PM EST 10/21/2020 12:44 PM EST Narrative LEXIE HUGGINS - 10/22/2020 6:10 PM EST Performed by [facility]., [address] [place] [address], CLIA# [id number] and [place] License# [id number] us Delmer May PA-C MICROBIOLOGY - GENERAL OR DERABLES Final Result LEXIE HUGGINS documented in this encounter Visit Diagnoses Diagnosis Encounter for laboratory testing for COVID-19 virus documented in this encounter
--- OUTSIDE RECORDS SUMMARY | 2025-06-13 17:20 | XMS_ITS | Clinical Summary ---
Author Organization [facility] Address [address] [place] [address] Care Team Providers Care Company Accountant Name Role Phone Crystal Tavarez MD Primary [...] age to complete this topic Care Teams Company Accountant Relationship Specialty Start Date End Date Crystal Tavarez MD [address] [facility] [place] [address] PCP - General Internal Medicine 12/29/23
== END 2025-06-13 17:18 | disposition home or self-care (01) ==
LOC: HO.HOP 17:18
PROVIDERS: PCP Internal Medicine; Visit Provider Psychiatry & Neurology Psychiatry
DX: F40.01 Agoraphobia with panic disorder (principal); G35 Multiple sclerosis
CPT/HCPCS: 99213

== ENCOUNTER → 2025-06-13 17:18 | Outpatient (BNVA) | payer BC, SELFPAY | PROVIDERS: PCP Internal Medicine; Visit Provider Psychiatry & Neurology Psychiatry | DX: F40.01 Agoraphobia with panic disorder (principal); G35 Multiple sclerosis; F10.11 Alcohol abuse, in remission; F14.11 Cocaine abuse, in remission; Z13.89 Encounter for screening for other disorder ==

== ENCOUNTER 2025-07-30 11:31 | Outpatient (AMB) | payer BC, SELFPAY ==
--- NOTE | 2025-07-30 12:15 | MHC.OFFVISPS ---
Intake Intake Visit Reasons: depression Allergies azithromycin (From Zithromax) Allergy (Unknown, Verified 04/18/25 13:17) Unknown Penicillins Allergy (Unknown, Verified 04/18/25 13:17) Unknown Sulfa (Sulfonamide Antibiotics) Allergy (Unknown, Verified 04/18/25 13:17) Unknown HPI- Psychiatric Chief Complaint: depression HPI Narrative: Patient consents to use of scribed during the appointment Just so I won't miss anything, how much benzos are you taking right now See, everything in my life's 0.5, so it's the 0.5. I'm doing 0.25 in the morning, 0.25 at night. I mean, you may wanna do 0.5 even up to three times a day for a week and then cut back. So you do know I'm exhausted. Of course. Am I exhausted because of my menopause? Am I exhausted because I'm in SSRI withdrawal? Am I exhausted because I'm in MS? Has had concerns regarding with the origins of her symptoms might be. Particularly since she had an MS attack earlier in the year and usually does not have MS fatigue Well, you're stressed, obviously. So this reminds me of how you were a number of years ago when you were pretty agitated. I tried to put you on a little oxcarbazepine for a while and maybe some Depakote. Are you staying sober? Oh, 100% I sponsor two girls. I do the commitment at the [facility] every Monday. I am fully engaged in that. There's no substance use. Past history of alcohol and cocaine use not for a number of years And when I sit here with you, of course, I'm gonna be like, chandni tariq. 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 I'm still smiling. I'm still functioning. If you read my Google reviews, everybody loves me. So it's not like it's affecting my life, unless you live in my house, unless you're my boyfriend. Okay. So when you're not having to force yourself to be in control. Yes. But at least you can maintain control when you need to. And, really, like, literally Taking any clonidine? You never do that, do you? I never did. Okay. I didn't take it. And so the clonazepam, you stopped. Right? Klonopin. That's what I'm on. You are taking Klonopin. That's the one I'm on. So you're not taking did you also ask for some extra lorazepam? I think I was due for a refill on the lorazepam. So now with the lorazepam, so I'll tell you shouldn't be taking both at the same exact time. So I will tell you that I did have to take a 0.5 lorazepam one night when [place] was [place], and I had a panic attack. Like, for breakthrough? It got. So Klonopin, okay. I was like, I'm not taking it on I've never taken my lorazepam on a daily basis. Never. You might try the clonazepam a half twice a day for a few days, see if you can ride this out. The question is Wait. Is that the Klonopin? Yeah. Okay. Because it does I'm telling you. That definitely does make me tired. When I tell you I sleep without a problem, I sleep without a problem. Okay. So but the 0.25 isn't sufficient? Well, it has been. So I will tell you that when I see traffic coming ahead of me, I'm not freaking out. I can go up to it. Now before the clonazepam, if I was driving and this line of traffic came, I would immediately go into fight or flight. Okay. Immediately. So you're not having the same anxiety symptoms? It's definitely my What do you wanna do? I have no fucking idea. Excuse my language. That is what like, I could cry because I'm frustrated because we know I like to be in control, and I can't figure it out. How much sertraline normally were you taking? 25? 50. 50? And it was beautiful for all those years until this menopause came. Do you want to go back to 25 or take a small dose of fluoxetine, which is Prozac, which is long-acting, so it doesn't have the same withdrawal stuff that the other SSRIs do? Sometimes it can be stimulating. I would give you a small dose. Or It pisses me off because the Zoloft worked so good for so long I know. Without the panic. And it's funny how everybody sees you because the day I was having the panic attack at camp that I did end up taking the 0.5. Emilia, I know you cannot hearsay or whatever because I bought the camper up in [place] to try to work-life balance. I was having a panic attack. And she's like, alright. Calm down. Calm down. Like, do you see a psych I'm like, yes. I have the man I've had since I was a freaking kid. I love him. Doctor. Mac. She's like, shut up. That's mine. I was like, okay. So we're all fucking crazy. Oh, okay. And I'm like, and so she did help talk me down, you know, that I was able to say, like, I you know? And it was fine. I was fine. But that's because I was up in [place]. Just it's everything is so unrealistic. It's, like, so stupid. So that's the part I think that gets me What's unrealistic? That I'd have a panic attack in [place] because I feel like I'm too far away. Like, that is the stupidest thought. Except when you're in anxiety mode, that fear brain takes over. And it makes me crazy because I pray. I meditate. I help people. But you feel like that's better now, or are you still in that category? Well, no. Like that like that, I feel like I got a listing for [facility] for Monday. I gave it to my son. Like, I'm not driving to [facility]. It's just I just know it's gonna give me anxiety. It's way too far out there. [place], [place] Or no. [place] And it's like 55 minutes anyways. I don't need to be chasing 55-minute listings. They're like, you came you know, my son's 27. He's a realtor. But it's like there are some things I'm avoiding. Not many. Don't get me wrong. And, typically, would you or no? Five years ago, I would've. Four years ago, I wouldn't have. Or as soon as this perimenopause had started, I wouldn't have. This is what's eulalio taken over. But trust me, if the money was that bad, I'd probably suck down lorazepam and do it anyways. You know? My son had a soccer game in [place] the other day. I went without a problem and didn't take anything else. Like, there are stupid things that are just in my brain that I wish I could Are you having hot flashes and withdrawal? The estrogen's okay. That does that. Okay. So we're getting rid of the escitalopram. So I'm gonna give you two choices, and I wish this were not trial and error. Like, this morning, like, I just have, like, no drive. Like, there's that would be an SSRI withdrawal. Right? Like, I have no energy, no drive. I didn't shower till right before I knew I had to come to get here for having anxiety. And I could still post after your MS attack, you were feeling more lethargy, weren't you? Yeah. But I'd still get up and go. I mean, so it could be the clonazepam, which until we see an SSRI that you tolerate perhaps I mean, you could try riding it out. But it seems like you did best when you were on an SSRI every time. Does. Because, really, like, the littlest agitation like, my 17-year-old, like, there's certain people I can hold it together with because I feel like he needs me to hold it together because he has his own shit. You know what I mean? But then there's, like, my poor boyfriend. He's like, thank god he's got 28 years sobriety, and he helps men and does shit because I'm just like, I need you to give me 30 days to just get my mental health in order and not, like, listen to me. So we're running out of SSRIs. And there are SNRIs. There are also other We tried one SNRI. Remember? What did we try? Was it Was it us, or was it Karthik? See, there I go from It's Vexor Cymbalta, venlafaxine, or I don't remember. Maybe it was Karthik. Okay. Do you wanna give 25 of sertraline a try? I mean, do you think here's the other thing, and you're gonna laugh again. The blue pills never have worked good. It was always that I had the The white and you took the Say what I'm saying. But that is in my mind. The question is are you more sensitive to it? You know, are you for some reason, are you more because when you went up, you did seem on the Lexapro 2.5 when we first started at low. You did seem good. And I was good at 0.5 too. I was good at 0.5. That pisses me off. That freaking that has Edgar. Dania in [place]. He's the one who fucked this all up. Excuse this f word. Like, see, I don't even normally I can hold that word back normally. It's okay. I'm from the [place]. I know. When in my meeting last night joke around here. At my 5 o'clock meeting last night when we were sharing, I'm like and someone had brought up, like, even in sobriety, you could still have bad feelings that need outside help. And I'm like, I'm here to tell you that I can throw a punch every one of you right now. Do you have sertraline at home? No. Between retrying the sertraline and doing 5 milligrams of Prozac, do you have a preference? No. I mean, the only thing I know about Prozac is my best friend was on it and wanted to kill herself and drive off a bridge. So it can be stimulating for some people. Like, it's less sedating. My mother's on it. My whole family's on Zoloft, though. All three of my kids are on Zoloft. Okay. Can I give you 50 and say try 25, or are you gonna freak out and I should just give you the 100 and say take a half and try to start a quarter? Wait. Which one are we talking about? Sertraline. Just go back to the sertraline. Which one it's trial and error. Do you have a the good thing about Prozac, it's long-acting. Which means what? It just is this is the Zoloft not long-acting? [place] acting. Has more of a withdrawal. Prozac, once you build up in your system, it'll last in your system a few weeks. But I wanna make sure you tolerate it, so I'm starting at a low dose, so don't bump it up. Right. Right. Right. Right. Right. Stay at the 5, which is the lowest dose it comes in. Whatever you think. I'm powerless at this point. Like, I'm my show running is not There are also other families, things like Doxepin, and there's the whole other family we could go into if we have to. If for whatever reason, the serotonin medications and wait a second. We had done I'd asked you about the genetic testing, but we already had it. Right? Right. Let me see if I can look at that again. Documents. Office and scan document. I do know an SSRI. I'll take this dizzy away, though. That will be helpful. Yeah. That's If it's SSRI withdrawal, yes. And both the sertraline and fluoxetine would do that. Come on, baby. Where the hell? Genetic results. Found out? 2015, so I did find it. That was a while ago. That was during a relapse. So the things like Prozac actually is listed as could be good? Yeah. Alright. So I'm gonna give you 5 milligrams. Okay. Now, of course, that's gonna be a pain in the ass. Let's see. Fluoxetine. So it does come as a 10-milligram tablet that you'll have to break in half. That's fine if it's just a regular. I mean, that Lexapro going into fours, man. Not even that pill cutter couldn't do it. I'm putting in 5 to 10 milligrams daily, but don't go up to 10 on your own. I will not. So 5 it gives us more flexibility. And do you think that I should do 5 of the Klonopin before bed, but keep the 0.25 in the day, or just keep it where I'm at? If you're having if you need to raise it because of more anxiety irritability on a temporary basis, that would be okay. But just know if you feel more stimulated on the Prozac, keep the Klonopin the way it is. One thing. You can use the lorazepam for breakthrough. Okay. But if you start to feel more agitated, stop it. Okay. That's true on JULIAN as well, by way. I can't imagine I could feel more You're making me earn my keep, and I'm not and I'm not earning it. So I know. We've gone many, many years. I mean, I'm freaking 55, and I was, like, 24. Two things changed. You had an MS attack, and you went into menopause. Yeah. That's what happened. It changed your biology a bit, so we'll have to figure it out. It may be another class. If this doesn't work, we might consider trying a different class of medication that's used to block panic. Okay. Prozac is used for PMS stuff and menstrual stuff. Gabapentin is something that some people also take, but that's more for, like, hot flashes and the anxiety piece. Yeah. We call that [place] sober. Every kid wants to be in. Gabapentin? Yeah. Oh, yeah. They love it. Oh, yeah. Somebody educated me from the [facility] one day because there was data about naltrexone plus gabapentin having a high rate of sobriety. So now anyone that I used [place] took a max. I spoke at [employer] in [place] the other day. There's a girl smoking in the bathroom. In [employer], the [employer] sold it. Like, I thought, what? How did she get it? So I know [employer] in the hospital. Yeah. At the in the hospital at [facility]. Right? Oh. Not an MS. It's just a holding. It's just a holding. It's a shit show. There's no sobriety happening there. I do need more of the clonidine now, by the way, while you're in there. There might be a refill on my thing, though, now that oh, maybe not. I hate [facility]. I just saw that there's only three left in my bottle. Want me to check and then call Kimberly? I'll give you 30 PM. And I can't tell you how many people in sobriety are smoking weed pens now for anxiety. And they think it's okay. Everybody. And they think it's okay. Is it okay? Like, I almost can jump on the train. That's what I'm saying. But I'm not a like, one of the girls yesterday, like, she's told me she's smoking, but it makes her exhausted. I hate being exhausted. There is no evidence. There's more evidence for MS pain, actually. Right. That for people with PTSD, anxiety, and depression, that chronic use of marijuana is helpful. But do you sleep your day away? I would so anyone with an addiction, I would never recommend that they be using it regularly during the day. Maybe a tiny bit for sleep at night. But more than that, you start you're altering your mood state again. After that relapse and having five years again, I'm not willing to try anything that's gonna take me at 54 years old back to addiction. 55. So alright. When do you wanna see me? Tomorrow? Yeah. I'm gonna be Why don't we touch base in 2-3 weeks? On a phone? Yeah. We could do, like, a phone appointment. Okay. 3 weeks, let's say. You can't retire? If you need to. You can't retire. Yes. I can. No. I can't retire, but I You can slow now. I can slow. Okay. You too. Thank you. Thank you. Past Psychiatric History: HISTORY OF COCAINE AND ALCOHOL ABUSE SOBER TIMES YEARS. 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 S HAS NOT TOLERATED MOOD STABILIZING AGENTS HAS BEEN STABLE ON SERTRALINE FOR YEARS T Mental Status Exam Mental Status Exam Narrative: Mental Status Exam Narrative: Appearance: Casually dressed Behavior: Cooperative appropriate psychomotor: Within normal limits Speech: Normal volume mildly pressure d Thought proccaess logical and goal-directed Thought content: focused on treatment coping strategies and frustrated Mood: anious Affect: Appropriate to mood full affect SI:denies HI:denies VH/AH:none Delusions: None Insight/judgment: Good insight and judgment Memory/cog: Intact Assessment and Plan Assessment & Plan (1) Panic disorder with agoraphobia: Status: Acute Code(s): F40.01 - Agoraphobia with panic disorder (2) Multiple sclerosis: Status: Acute Code(s): G35 - Multiple sclerosis Plan Will start patient on 5 mg of fluoxetine should help cover SSRI withdrawal if that his still an issue and help with panic disorder and agoraphobia symptoms. Clonazepam low-dose b.i.d. 0.25-0.5 until fluoxetine kicks in will maintain for short period and then expect to change just occasional PRN. 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 Medications: New fluoxetine 5 - 10 mg (0.5 - 1 x 10 mg) PO DAILY 30 tabs 1RF Changed From clonazepam 0.25 - 0.5 mg (0.5 - 1 x 0.5 mg) PO BID 10 days 20 tabs 1RF To clonazepam (Klonopin) 0.25 - 0.5 mg (0.5 - 1 x 0.5 mg) PO BID 60 tabs 1RF 30 days Discontinued lorazepam Discontinued Reason: Doctor's Order 0.5 mg PO BID PRN 30 tabs 0RF anxiety escitalopram oxalate Discontinued Reason: Doctor's Order 5 - 10 mg (0.5 - 1 x 10 mg) PO DAILY 30 days 30 tabs 1RF escitalopram oxalate Discontinued Reason: Doctor's Order 5 - 10 mg (0.5 - 1 x 10 mg) PO DAILY 30 days 30 tabs 1RF Counseling and coordination of Care Details-Self Mgmt counseling: Discussion regarding strategies Diagnosis and Prognosis Counseling: Impact of diagnosis on life functions and Adequacy of current interventions Details: I spent [30] minutes reviewing the record, seeing the patient and documenting in the medical record. Counseling provided to the patient/caregiver as outlined below. Addressed patient/caregiver concerns regarding current medication regime including effective adherence. Addressed patient/caregiver concerns regarding diagnosis and prognosis including accuracy of diagnosis, prognosis over time, impact of diagnosis. Addressed patient/caregiver concerns regarding impact of recent stressors. [facility] Medical History (Updated 04/18/25 @ 13:19 by Judy Schultz CMA) Cervical radiculopathy Chronic fatigue Central nervous system demyelinating disease Attention and concentration deficit Panic disorder with agoraphobia Mood disorder Panic disorder Multiple sclerosis Asthma Family History (Updated 04/18/25 @ 13:20 by Judy Schultz CMA) Father Multiple sclerosis Social History: PATIENT IS HAS 3 CHILDREN WORKS A REALTOR WHICH HAS BEEN A GOOD FIT FOR THE PATIENT. PATIENT VERY ACTIVE IN RECOVERY. POSITIVE FAMILY HISTORY OF ANXIETY DISORDERS AND ADDICTION Substance History: PAST HISTORY OF ALCOHOL AND COCAINE USE GENERALLY CHARACTERIZED BY BINGEING Coding Level of Care Code Est Pt Level 4 (57900) Diagnoses Panic disorder with agoraphobia F40.01 Multiple sclerosis G35
== END 2025-07-30 12:36 | disposition home or self-care (01) ==
LOC: HO.HOP 11:31
PROVIDERS: PCP Internal Medicine; Visit Provider Psychiatry & Neurology Psychiatry
DX: F40.01 Agoraphobia with panic disorder (principal); G35.D Multiple sclerosis, unspecified
CPT/HCPCS: 99214

== ENCOUNTER 2025-08-14 12:16 | Outpatient (AMB) | payer BC, SELFPAY ==
--- NOTE | 2025-08-14 11:23 | A.OFFPSYCH_ITS ---
Intake Intake Visit Reasons: depression Allergies azithromycin (From Zithromax) Allergy (Unknown, Verified 04/18/25 13:17) Unknown Penicillins Allergy (Unknown, Verified 04/18/25 13:17) Unknown Sulfa (Sulfonamide Antibiotics) Allergy (Unknown, Verified 04/18/25 13:17) Unknown Medication List - Last Reconciled 08/14/25 by Adalid Watts MD albuterol sulfate 90 mcg/actuation 2 puffs inhalation Q6H clonazepam (Klonopin) 0.25 - 0.5 mg (0.5 - 1 x 0.5 mg) PO BID 30 days clonidine HCl 0.05 - 0.1 mg (0.5 - 1 x 0.1 mg) PO BID PRN estradiol patches transdermal fluoxetine 5 - 10 mg (0.5 - 1 x 10 mg) PO DAILY lorazepam 0.5 mg PO BID PRN meclizine 25 mg PO TID PRN multivitamin 1 tab PO DAILY progesterone micronized 100 mg PO DAILY vitamin B complex 1 tab PO DAILY HPI- Psychiatric Chief Complaint: depression HPI Narrative: The patient is a 55-year-old female with a history of MS,and has a history of anxiety with panic disorder and has been having a difficult perimenopause. She is experiencing changes in her medication regimen, specifically with fluoxetine and Klonopin, and has been consulting with a nurse practitioner for hormone therapy. We had started fluoxetine 5 mg to help with withdrawal symptoms patient was having SSRI withdrawal and to help block panic attacks and agoraphobia symptoms. Patient has been sober for many years and seems to have benefitted from low-dose clonazepam 0.25 mg twice a day The patient reports that since starting fluoxetine 5 mg and Klonopin 0.25 mg twice daily, she no longer experiences dizziness and has more energy. She encountered an issue with her estrogen patch, which led to heart palpitations and flushing when she doubled the dose as instructed by another provider. She has since adjusted the dose back and sought further hormonal management. Her background level of anxiety has been stable, and she is managing well with her current regimen. Her family history was not discussed. She is currently taking fluoxetine 5 mg daily and Klonopin 0.25 mg twice daily. The patient is also on hormone replacement therapy, which is being adjusted due to absorption issues. There were no allergies mentioned. Socially, she is planning to travel to the [facility] and has a daughter who is recently engaged. The patient had been having some difficulty driving in situations where there was traffic and where she could not pull off. Past Psychiatric History: HISTORY OF COCAINE AND ALCOHOL ABUSE SOBER TIMES YEAR S. 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 S HAS NOT TOLERATED MOOD STABILIZING AGENTS HAS BEEN STABLE ON SERTRALINE FOR YEARS T Mental Status Exam Mental Status Exam Narrative: Patient is casually dressed pleasant in engagement. Her speech is clear goal- directed logical. Her mood she states has been good affect appropriate to mood and full. Patient is future oriented content around treatment she did describe 1 recent event where she had had too much estrogen her system and had had palpitations but otherwise has been doing quite well. Impulse control intact no psychotic symptoms no SI or HI Telehealth [facility] Location of [facility] services: practice address Location of patient: address on file Telehealth method: video Patient verbally consented to treatment: Yes Patient informed of any privacy concerns related to visit: Yes Minutes spent on Phone/Video with Pt.: 10 Assessment and Plan Assessment & Plan (1) Panic disorder with agoraphobia: Status: Acute Code(s): F40.01 - Agoraphobia with panic disorder (2) Multiple sclerosis: Status: Acute Code(s): G35 - Multiple sclerosis Plan Patient appears stable on current regimen continue fluoxetine 5 mg and clonazepam 0.25 mg b.i.d. patient has been sober for many years not being triggered by low-dose clonazepam and this has helped regarding her perimenopausal symptoms panic attacks and agoraphobia symptoms in addition to the SSRI. Follow-up 2 months patient had been stable for many years she did have MS relapse number of months ago and since then has had a hard time stabilizing. She is taking estrogen replacement progesterone and testosterone patient to call with any concerns between appointments or can use the portal Counseling and coordination of Care Medication management counseling: Effectiveness, Side effects and Dosing range Diagnosis and Prognosis Counseling: Adequacy of current interventions Details: I spent [18] minutes reviewing the record, seeing the patient and documenting in the medical record. Counseling provided to the patient/caregiver as outlined below. Addressed patient/caregiver concerns regarding current medication regime including effective adherence. Addressed patient/caregiver concerns regarding diagnosis and prognosis including accuracy of diagnosis, prognosis over time, impact of diagnosis. Addressed patient/caregiver concerns regarding impact of recent stressors. 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 PATIENT VERY ACTIVE IN RECOVERY. POSITIVE FAMILY HISTORY OF ANXIETY DISORDERS AND ADDICTION Substance History: PAST HISTORY OF ALCOHOL AND COCAINE USE GENERALLY CHARACTER IZED BY BINGEING Coding Level of Care Code Tele Est Pt Level 3 (04776) Diagnoses Panic disorder with agoraphobia F40.01 Multiple sclerosis G35
--- OUTSIDE RECORDS SUMMARY | 2025-08-14 15:10 | XMS_ITS | Clinical Summary ---
Author Organization [facility] Address [address] [place] [address] Care Team Providers Care Hand Button Splitter Name Role Phone Crystal Tavarez MD Primary [...] age to complete this topic Care Teams Hand Button Splitter Relationship Specialty Start Date End Date Crystal Tavarez MD [address] [facility] [place] [address] PCP - General Internal Medicine 12/29/23
--- OUTSIDE RECORDS SUMMARY | 2025-08-14 15:10 | XMS_ITS | Clinical Summary ---
Author Organization [facility] Address [address] [place] [address] Care Team Providers Care Fan Blade Aligner Name Role Phone Crystal Tavarez MD Primary Care Provide r Surgical History Surgery Date Site/Laterality Comments COLONOSCOPY PROCEDURE:COLONOSCOPY BACK SURGERY PROCEDURE:BACK SURGERY;COMMENT:cervial disc replacement DILATION AND CURETTAGE OF UTERUS PROCEDURE:DILATION AND CURETTAGE OF UTERUS TUBAL LIGATION PROCEDURE:TUBAL LIGATION OTHER SURGICAL HISTORY 12/29/2023 Bilateral PROCEDURE:BRACHIOPLASTY;COMME NT:Procedure: BILATERAL BRACHIOPLASTY; Surgeon: Christian Briscoe MD; Location: [facility] MAIN OPERATING ROOM; Service: Plastics; Laterality: Bilateral; LIPOSUCTION 12/29/2023 Bilateral PROCEDURE:LIPOSUCTION;COMMENT :Procedure: WITH PRE LIPOSUCTION ARMS; Surgeon: Christian Briscoe MD; Location: [facility] MA[facility]PERATING ROOM; Service: Plastics; Laterality: Bilateral; Medical History Medical History Date Comments MS (multiple sclerosis) DX:MS (m ultiple sclerosis) (HCC);COMMENT:Relapsing/ remitting per pt Visual impairment DX:Visual impa [...] Last Done Comments Breast Cancer Screening 1971 Colorectal Cancer Screening: Colonoscopy 1971 DTaP,Tdap,and Td Vaccines (1 - Tdap) 1990 Hepatitis B Vaccines (1 of 3 - 19+ 3-dose series) 1990 Cervical Cancer Screening: P ap Smear 1992 Pneumococcal Vaccine: 50+ Ye ars (1 of 1 - PCV) 2021 Zoster Vaccines (1 of 2) 2021 HIV Screening 06/03/2024 Hepatitis C Screening 06/03/2024 Social Influencers of Health Screening 06/03/2024 Depression Screening 10/09/2024 COVID-19 Vaccine (1 - 2023-2 5 season) 2025 Influenza Vaccine (#1) 2025 RSV Immunization Adult Patie nts (1 - 1-dose 75+ series) 2046 HIB Vaccines Aged Out No longer eligi [...] age to complete this topic Care Teams Fan Blade Aligner Relationship Specialty Start Date End Date Crystal Tavarez MD [address] [place] [address] [place] PCP - General 12/29/23
== END 2025-08-14 12:17 | disposition home or self-care (01) ==
LOC: HO.HOP 12:16
PROVIDERS: PCP Internal Medicine; Visit Provider Psychiatry & Neurology Psychiatry
DX: F40.01 Agoraphobia with panic disorder (principal); G35.D Multiple sclerosis, unspecified
CPT/HCPCS: 99213